=== PATIENT | female | born 1990 | race Caucasian/White ===

== ENCOUNTER 2025-06-23 10:39 | Inpatient (IN) | payer OTHER, SELFPAY ==
[2025-06-23] VITALS (14 sets, daily range): BP systolic 104–232; BP diastolic 50–87; PULSE 98–122; RESP 14–24; TEMP 36.6–38.8; O2SAT 97–99; BMI 32.5
--- NOTE | ~2025-06-23 | XR_ITS ---
EXAMINATION: XR CHEST CLINICAL INFORMATION: chest pain COMPARISON: September 29, 2019 TECHNIQUE: 2 views of the chest were obtained. FINDINGS: Median sternotomy wires are intact. Again seen is a prosthetic valve, likely pulmonary. Cardiac size is enlarged. It is similar to the prior. Lungs are clear. There is no pleural effusion. No pneumothorax is evident. XR/XR chest 2V IMPRESSION: Cardiac valve prosthesis, probably pulmonary. Cardiomegaly. No acute disease. Electronically signed by: Ariel Bowers MD 06/23/2025 11:13 AM [facility]
--- NOTE | 2025-06-23 10:42 | ECG_ITS ---
Test Reason : cp Blood Pressure : */* mmHG Vent. Rate : 97 BPM Atrial Rate : 97 BPM P-R Int : 130 ms QRS Dur : 154 ms QT Int : 408 ms P-R-T Axes : 25 -7 72 degrees QTcB Int : 518 ms Normal sinus rhythm Right bundle branch block Possible Inferior infarct , age undetermined T wave abnormality, consider lateral ischemia Abnormal ECG When compared with ECG of 18-Sep-2019 06:56, No significant change was found Referred By: Zina Cross Electronically Signed By: David Camarillo
--- NOTE | 2025-06-23 10:48 | ED_ITS ---
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 Patient had cardiac MRI in [facility] which was showed preserved LV function. She was seen at [facility] in February for similar symptoms as well, with only abnormal finding of small pericardial effusion. She was also seen by cardiology at [facility] 1 week ago. They recommended outpatient echo which patient has scheduled this month. She denies any change in her symptoms since onset in January. Currently rating her chest pain at 8/10. Does complain of chills and lower back pain today. Also noted to have nonproductive cough during assessment. Reports that she is supposed to be on a daily baby aspirin but usually forgets to take this, also has Nexplanon implant and is currently on Adderall. MD complaint: Chest pain Onset (ago): month(s) Related Data Allergies Allergy/AdvReac Type Severity Reaction Status Date / Time amoxicillin (From AUGMENTIN) Allergy Intermediate RASH Unverified 05/07/20 19:04 clavulanic acid (From Allergy Intermediate RASH Unverified 05/07/20 19:04 AUGMENTIN) influenza virus vaccine, Allergy Intermediate RASH Unverified 05/07/20 19:04 specific (FLU VACCINE) povidone-iodine (From Allergy Intermediate RASH Unverified 05/07/20 19:04 BETADINE) soap (From BETADINE) Allergy Intermediate RASH Unverified 05/07/20 19:04 iodine (IODINE) Allergy Unknown RASH Unverified 05/07/20 19:04 naproxen (NAPROXEN) Allergy Unknown RASH Unverified 05/07/20 19:04 Penicillins (PENICILLINS) Allergy Unknown UNK Unverified 05/07/20 19:04 sumatriptan Allergy Palpitation Verified 06/23/25 10:49 s FLU VACCINE Allergy Unknown Unknown Uncoded 06/23/25 10:49 Review of Systems 2 Review of Systems: As per HPI Yes all other systems are reviewed and are negative Constitutional: Constitutional: Reports as per HPI [facility] Social History Social History Smoked in Last 30 Days: No Use of substances other than those prescribed or required for medical reasons: No Advance Directives: No Advance Directives Information Provided: No Patient : No Physical Exam ED Vital Signs: Vital Signs - 24 hr 06/23/25 10:47 06/23/25 11:24 06/23/25 12:00 Temperature 97.9 F 99.1 F 100.4 F Pulse Rate 105 H 102 H 116 H Respiratory Rate 18 18 19 Blood Pressure 144/66 H 132/72 134/67 Pulse Oximetry 99 98 99 Oxygen Delivery Method Room Air Room Air Room Air BMI result Body Mass Index 32.5 Vital signs have been reviewed and appear to be correct. Blood pressure normal. Heart rate slightly tachycardic. Respiratory rate normal. Temperature normal. Oxygen saturation normal. Const General: cooperative, healthy appearing and no acute distress Orientation/consciousness: oriented to person, oriented to place, oriented to time and patient oriented x3 Limitations: no limitations HENMT Head: Yes normocephalic and Yes atraumatic Ears: external ears normal General nose exam: Normal external nose present Face and sinus: Yes face symmetric Mouth: oropharynx normal and moist mucous membranes Throat: Yes uvula midline Eyes Pupils: Equal, round and reactive pupils present Neck Neck: Yes normal visual inspection and Yes supple Chest Chest palpation & inspection: other (well-healed surgical scar over sternum) Resp Effort & Inspection: normal respiratory effort and able to speak in complete sentences Auscultation: clear to auscultation bilaterally Cardio Rate: regular rate Rhythm: regular rhythm Heart sounds: S1 normal heart sound present, S2 normal heart sound present and Murmur heart sound present Peripheral pulses: Peripheral pulses 2+ throughout GI Palpation (GI): Soft to palpation and nontender Auscultation: normoactive bowel sounds General: Yes no CVA tenderness Back/Spine/Pelvis Back: no CVA tenderness Skin General skin exam: elasticity normal and turgor normal Neuro General: oriented to person, oriented to place, oriented to time, patient oriented x3, moves all extremities, no focal motor deficits and CN's II-XI intact bilaterally Cranial nerves: Yes Equal, round and reactive pupils present Cognition (Neuro): normal cognition Extrem General: Yes full ROM, Yes no pedal edema and Yes no calf tenderness Psych Mental Status: mental status grossly normal Affect: normal affect Thought process: Normal thought process present Course Course Course Narrative: Rapid medical examination performed in triage by Zina Cross PA-C: Patient is a 34 year old assigned female at presenting to the emergency department with chest pain on and off. Patient went to [facility] to have a cardiac MRI in May. Tetralogy of Fallot history. Patient states that she has also been having shortness of breath. Detailed physical exam and review of systems are deferred to the primary care nurse. EKG, labs, and imaging ordered. Patient placed back in the waiting room pending room availability and results. Medications Administered Generic Name Dose Route Start Last Admin Trade Name Freq PRN Reason Stop Dose Admin Ceftriaxone Sodium 2 gm/ 50 mls @ 100 mls/hr 06/23/25 13:59 06/23/25 14:10 Sodium Chloride IV 06/23/25 14:28 100 mls/hr ONCE ONE Administration Discontinued Medications Generic Name Dose Route Start Last Admin Trade Name Freq PRN Reason Stop Dose Admin Acetaminophen 1,000 mg in 100 mls @ 400 mls/hr 06/23/25 12:29 06/23/25 12:55 Ofirmev IV 06/23/25 12:43 Infused ONCE ONE Infusion Medical Decision Making Medical Decision Making [facility] Narrative: Patient is a 34-year-old female with 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 On exam patient is awake, A+Ox3, slightly tachycardic, VS otherwise WNL, afebrile, normal neurological exam without focal deficits, physical exam findings as above. Given reported symptoms and physical exam findings, initial differential includes but is not limited to PE, arrhythmia, viral illness, musculoskeletal pain. Labs unremarkable, negative troponin and d-dimer. X-ray chest notable for no evidence of pneumonia or pneumothorax, notable for cardiomegaly and prosthetic valve. My interpretation is in agreement with the radiologist's interpretation. Viral serology negative. Initial EKG shows normal sinus rhythm with right bundle-branch block present on prior EKGs, U wave inversion in leads V1 through V3. Most recent cardiology note from 06/17/2025 notes EKG changes of horizontal ST depression and T-wave inversions in leads 3 and AVF which tier and detonator felt was likely related to pulmonary valve dysfunction. 1345 Notified by RN at this time that patient has temp of 100.4, with her tachycardia she is meeting sepsis criteria. Patient denies any history of IVDA. Blood cultures and lactic ordered as well as empiric ceftriaxone. Case discussed with JOSH Charles who accepts admission to medicine. Differential Diagnosis Differential Diagnoses: The differential diagnosis associated with the presentation includes as per [facility] Admission/Observation Consideration of admission/observation: Escalation of care including admission/observation considered Consult Healthcare Provider Management of the patient was discussed with: Hospitalist Lab Data [facility] Lab Attestation statement: I reviewed the patient's lab results. as per [facility] 06/23/25 11:33 06/23/25 11:33 Labs: Lab Results 06/23/25 06/23/25 06/23/25 Range/Units 11:33 12:36 13:57 WBC 7.0 (4.8-10.8) X10*3/uL RBC 5.18 (4.20-5.50) X10*6/uL Hgb 13.5 (12.0-16.0) g/dl Hct 42.6 (37.0-47.0) % MCV 82.2 (80.0-98.0) fL MCH 26.1 L (27.0-33.0) pg MCHC 31.7 (31.0-35.0) g/dl RDW 13.8 (11.0-16.0) % Plt Count 322 (160-400) X10*3/uL MPV 10.0 (9.4-12.3) fL Immature Gran % (Auto) 0.3 (0.0-0.4) % Neut % (Auto) 86.4 H (45-73) % Lymph % (Auto) 4.7 L (20-40) % [place] % (Auto) 6.3 (2-11) % Eos % (Auto) 1.7 (0-4) % Baso % (Auto) 0.6 (0-2) % Lymph # (Auto) 0.3 L (1.2-4.9) X10*3/uL [place] # (Auto) 0.4 (0.1-1.2) X10*3/uL Eos # (Auto) 0.1 (0.0-0.4) X10*3/uL Baso # (Auto) 0.0 (0.0-0.2) X10*3/uL Abs Immat Gran (auto) 0.02 (0.00-0.03) X10*3/uL Absolute Neuts (auto) 6.0 (2.0-8.3) x10*3/uL Absolute Nucleated RBC 0.000 (0.0-0.012) X10*3/uL Nucleated RBC % (auto) 0.0 (0.0-0.2) /100WBC D-Dimer High Sensitivty < 150 NG/ML Sodium 137 (135-145) mmol/L Potassium 4.0 (3.3-5.1) mmol/L Chloride 102 (96-108) mmol/L Carbon Dioxide 25 (22-29) mmol/L Anion Gap 14 (12-20) BUN 11 (9-16) mg/dL Creatinine 0.67 (0.5-1.4) mg/dL Estim Creat Clear Calc 117.4 Estimated GFR > 60 Random Glucose 84 (60-115) mg/dL Calcium 9.7 (8.4-10.2) mg/dL Total Bilirubin 0.6 (0.0-1.0) mg/dL AST 35 H (5-31) U/L ALT 30 (0-31) U/L Alkaline Phosphatase 85 (39-117) U/L Troponin I High Sens < 2.7 (<3.5-17.0) ng/L C-Reactive Protein 0.54 H (< or = 0.50) mg/dL NT-Pro-B Natriuret Pep 87.4 (<300) pg/mL Total Protein 8.9 H (6.5-8.0) g/dL Albumin 5.4 H (3.5-5.0) g/dL Beta HCG, Quant < 2 mIU/mL Urine Color Yellow Urine Appearance Clear Urine pH 7.0 (5.0-9.0) Ur Specific [place] 1.020 (1.005-1.025) Urine Protein Negative (Neg-Trace) mg/dL Urine Glucose (UA) Negative (Negative) mg/dL Urine Ketones Trace (Negative) mg/dL Urine Blood Large (3+) H (Negative) Urine Nitrite Negative (Negative) Ur Leukocyte Esterase Trace H (Negative) Urine RBC 0-2 (0-2) /HPF Urine WBC 0-5 (0-5) /HPF Ur Squamous Epith Cells 3-5 (0-2) /HPF Urine Bacteria Trace (None Seen) Hyaline Casts 0-2 (0-2) /LPF COVID-19 (ADOLPH) Negative (Negative) COVID-19 Clin Com See Note Influenza Type A (PAULINE) Negative (Negative) Influenza Type B (PAULINE) Negative (Negative) Influenza A & B Note See Note Independent Interpretation I performed an independent interpretation of an: EKG (NSR with RBBB, rate 97bpm, normal CT interval and prolonged QTc) and Plain X-Ray Interpretation: CXR is without evidence of pneumonia, pneumothorax; notable for cardiomegaly, and valve prosthesis Radiology Impression Discussion of test interpretation with radiology: I have reviewed the radiologist's reading. Radiologist Impression: XR/XR chest 2V IMPRESSION: Cardiac valve prosthesis, probably pulmonary. Cardiomegaly. No acute disease. External Record Review External record reviewed: Inpatient record and Outpatient record Prescription Management I considered prescription management with: Antibiotic Critical Care Time Critical Care Time Critical Care Time: Yes Total Critical Care Time: 45 Attestation: I have personally provided critical care time exclusive of time spent on separately billable procedures. Time includes review of lab data, radiology results, discussion with consultants, and monitoring for potential decompensation. Intervention performed as documented. Discharge Plan Discharge Clinical Impression: Chest pain, Fever Patient Disposition: Admitted As Inpatient Print Language: Yi
[2025-06-23 11:43] LABS: MANUAL DIFF FLAG NO
[2025-06-23 11:49] LABS: Hematocrit 42.6 % (37.0-47.0); Hemoglobin 13.5 g/dl (12.0-16.0); Imm Gran Abs Auto 0.02 X10*3/uL (0.00-0.03); Imm Gran Pct Auto 0.3 % (0.0-0.4); Lymphocytes Absolute Auto 0.3 X10*3/uL (1.2-4.9); Mean Corpuscular HGB Conc 31.7 g/dl (31.0-35.0); Mean Corpuscular Hemoglobin 26.1 pg (27.0-33.0); Mean Corpuscular Volume 82.2 fL (80.0-98.0); NRBC Abs Auto 0.000 X10*3/uL (0.0-0.012); NRBC Pct Auto 0.0 /100WBC (0.0-0.2); Platelet Count 322 X10*3/uL (160-400); Red Blood Count 5.18 X10*6/uL (4.20-5.50); White Blood Count 7.0 X10*3/uL (4.8-10.8)
[2025-06-23 12:09] LABS: NT Pro B Type Natriuretic Pept 87.4 pg/mL (<300)
[2025-06-23 12:10] LABS: Alanine Aminotransferase 30 U/L (0-31); Albumin Level 5.4 g/dL (3.5-5.0); Alkaline Phosphatase 85 U/L (39-117); Anion Gap 14 (12-20); Aspartate Amino Transferase 35 U/L (5-31); Blood Urea Nitrogen 11 mg/dL (9-16); Calcium 9.7 mg/dL (8.4-10.2); Carbon Dioxide 25 mmol/L (22-29); Chloride 102 mmol/L (96-108); Creatinine Clr Calc Pharmacy 117.4; Estimated Glomerular Filt Rate > 60; Potassium 4.0 mmol/L (3.3-5.1); Sodium 137 mmol/L (135-145); Total Protein 8.9 g/dL (6.5-8.0)
[2025-06-23 12:11] LABS: Troponin-I High Sensitivity < 2.7 ng/L (<3.5-17.0)
[2025-06-23 13:05] LABS: D Dimer High Sensitivity < 150 NG/ML
[2025-06-23 13:15] LABS: COVID-19 Test Negative (Negative); IDNOW Serial# 55D5AD1C
[2025-06-23 13:17] LABS: IDNOW Serial# 58CA691E; Influenza B2 Negative (Negative)
--- NOTE | 2025-06-23 13:28 | ECG_ITS ---
Test Reason : repeat Blood Pressure : */* mmHG Vent. Rate : 112 BPM Atrial Rate : 112 BPM P-R Int : 136 ms QRS Dur : 154 ms QT Int : 380 ms P-R-T Axes : 44 -14 68 degrees QTcB Int : 518 ms Sinus tachycardia Possible Left atrial enlargement Right bundle branch block Inferior infarct (cited on or before 23-Jun-2025) Abnormal ECG When compared with ECG of 23-Jun-2025 10:43, No significant change was found Referred By: Rebeca Parker Electronically Signed By: David Camarillo
--- NOTE | 2025-06-23 14:00 | PC.NURSE ---
Discussed w/ provider JOSH Nino regarding administration of sepsis 30ml/kg ivf administration, it was decided will hold off secondary to pts pmhx of heart valve replacement and unsure of current EF.
[2025-06-23 14:08] LABS: Appearance Urine Clear; Glucose Urine UA Negative (Negative); PH 7.0 (5.0-9.0); Specific Gravity - Urine 1.020 (1.005-1.025); UMIC TRIGGER UACC YES
[2025-06-23 14:34] LABS: Troponin-I High Sensitivity < 2.7 ng/L (<3.5-17.0)
--- NOTE | 2025-06-23 15:04 | PHA.MEDREC ---
Addendum entered by Arnulfo Quiroga PharmD 06/23/25 15:08: reviewed Original Note: Pharmacy Consult ? Medication Reconciliation Pharmacy has completed the medication reconciliation. Spoke with pt and she confirmed her medications. Pt confirmed she no longer taking Albuterol inhaler or Fluticasone nasal spray; stating she picked them up but has not needed to take them and she uses Trazodone as needed for sleep now.
--- OUTSIDE RECORDS SUMMARY | 2025-06-23 15:04 | XMS_ITS ---
Author Name [facility] Organization Unknown History of Medication Use Medication Directions Dispensed Refills Start Date End Date Stat us fexofenadine-pseudoe phedrine (CARMEN-D) 60-120 mg per tablet Take 1 tablet by mouth 2 (two) times daily. 09/20/2024 active predniSONE (DELTASONE) 50 mg tablet Take 1 tablet (50 mg total) by mouth daily for 3 days. Take with food. 09/16/2024 active dextroamphetamine-am phetamine XR (ADDERALL XR) 20 mg 24 hr capsule Take 1 capsule (20 mg total) by mouth. 07/12/2024 active aspirin 81 mg EC delayed release tablet Take 1 tablet (81 mg total) by mouth daily. active Allergies Allergen Reaction Severity Comment Documented Date Source Statu s LIDOCAINE 09/16/2024 [facility] active SUMATRIPTAN PALPITATIONS 08/22/2024 [facility] ac tive IODINATED CONTRAST MEDIA RASH [facility] IODINE [facility] NAPROXEN R[facility] PENICILLINS RASH [facility] Problems Problem Status Onset Date Problem Type Date of Resoluti on Source Acute cough active EncounterDiagnosisAct [facility] Sore throat active EncounterDiagnosisAct [facility] Encounters Encounter Type Encounter Reason Primary Diagnosis Location Date Ambulatory Cough Cough [facility] 09/20/2024 Ambulatory Acute pharyngitis Acute pharyngitis [facility] 09/16/2024 Care Team Organization Name Specialty Phone Email Start Date End [facility] HARIKA WORLEY Primary Care 0 09/17/[address] [place] [facility]
--- OUTSIDE RECORDS SUMMARY | 2025-06-23 15:04 | XMS_ITS | Clinical Summary ---
Author Organization [address] [place] [address] Address [address] [place] [address] Phone Care Team Providers Care Parts Counter Salesperson Name Role Phone Ninfa Swenson MD Primary Care Provider [phone]- [phone] Allergies Active Allergy Reactions Criticality Noted Date Comments Amoxicillin-Pot Clavulanate Rash Medium 08/22/19 Povidone-Iodine Skin Problems Medium 08/22/2024 Influenza Virus Vaccines Rash Medium 08/22/2024 Iodinated Contrast Media Rash Medium 08/22/2024 Iodine Rash Medium 08/22/2024 Naproxen Rash Medium 08/22/2024 Penicillins Rash Medium 08/22/2024 Sumatriptan Palpitations Low 08/22/2024 Medications amphetamine-dex troamphetamine XR (ADDERALL XR) 20 mg 24 hr capsule Take 1 capsule (20 mg total) by mouth 1 (one) time each day in the morning. Do not crush or chew. Max Daily Amount: 20 mg Active levoFLOXacin (LEVAQUIN) 250 mg tablet Take by mouth. Active aspirin 81 mg EC tablet Take 1 tablet (81 mg total) by mouth 1 (one) time each day. Active oxyCODONE (ROXICODONE) 5 mg immediate release tablet Take 1 tablet (5 mg total) by mouth every 4 (four) hours if needed for severe pain or moderate pain. Max Daily Amount: 30 mg 35 tablet 08/23/2024 Active Active Problems Problem Noted Date Diagnosed Date Superficial foreign body of foot without major open wound and without infection 08/22/2024 Pneumonia due to other specified infectious orga nisms 10/25/2005 Overview (08/27/2024): Pneumonia due to other specified organism(483.8) Croup 10/25/2005 Expressive language disorder 10/25/2005 Varicella 10/25/2005 Overview (08/27/2024): without mention of complication - IMO update Immunizations Immunization Administration Dates Next Due DTP 09/28/1995, 3,04/08/1992,1991,1991 [id number] (Pentacel) 2mo to less than 5yo 04/08/1992,02/06/1992,1991 Hepatitis B Pediatric (Enger ix B; Recombivax HB) to less than 20 yo 04/18/1995,10/27/1994,09/27/1994 OPV 09/28/1995, 3,02/06/1992,1991 Td, Unspecified 11/14/2003 Surgical History Surgery Date Site/Laterality Comments KNEE ARTHROSCOPY Left CARDIAC VALVE SURGERY Medical History Medical History Date Comments Expressive language disorder DX: Expressive language disorder Croup DX:Croup Varicella without mention of complication DX:Varicella without mention of complication Pneumonia due to other speci fied organism(483.8) DX:Pneumonia due to other sp ecified organism(483.8) Tetralogy of Fallot Adhd PTSD (post-traumatic stress disorder) Family History Relation Name Status Comments Brother Alive 08/18/1988, mar k Father Alive 03/11/1961 Mother Alive 02/05/57 Social History Tobacco Use Types Packs/Day Years Used Date Smoking Tobacco: Never Tobacco Cessation:Counseling Given: Not Answered Alcohol Use Standard Drinks/Week Comments Not Asked 0 (1 standard drink = 0.6 oz pur e alcohol) Comments No Sex and Gender Information Value Date Recorded Sex Assigned at Female 08/23/2024 11:25 AM EST Legal Sex Female 9:07 PM EST Gender Identity Female 08/23/2024 11:25 AM EST Sexual Orientation Straight 08/23/2024 11 :25 AM EST Obstetrics History Last Filed Vital Signs Vital Sign Reading Time Taken Comments Blood Pressure 93/57 08/23/2024 2:08 PM EST Pulse 78 08/23/2024 2:08 PM EST Temperature 36.7 C (98 F) 08/23/2024 11:42 AM EST Respiratory Rate 16 08/23/2024 2:08 PM EST Oxygen Saturation 100% 08/23/2024 2:08 PM EST Inhaled Oxygen Concentration - - Weight 74.8 kg (165 lb) 09/10/2024 7:57 AM EST Height 157.5 cm (5' 2.01 ) 09/10/2024 7:57 AM ES T Body Mass Index 30.17 09/10/2024 7:57 AM EST Plan of Treatment Health Maintenance Due Date Last Done Comments Cervical Cancer Screening: Pap Smear 2012 HPV Vaccines (1 - 3-dose SCDM series) 2018 HIV Screening 09/15/2023 Hepatitis C Screening 09/15/2023 Social Influencers of Health Screening 09/15/2023 Depression Screening 08/21/2024 COVID-19 Vaccine ( season) 2025 12/04/2021, 08/11/2021 Influenza Vaccine (#1) 2025 DTaP,Tdap,and Td Vaccines (10 - Td or Tdap) 08/20/2034 08/20/2024, 12/25/2014, 09/11/2009, Additional history exists RSV Immunization Adult Patients (1 - 1-dose 75+ series) 2066 HIB Vaccines Aged Out 04/08/1992, 01/19, 1991 No longer eligible based on patient's age to complete this topic IPV Vaccines Completed 09/28/1995, 03/21, 04/08/1992, Additional history exists MMR Vaccines Completed 09/30/1996, 01/06/1993 Varicella Vaccines Aged Out 10/25/2005 No longer eligible based on patient's age to complete this topic Meningococcal ACWY Vaccine Aged Out 09/16/2011, No longer eligible based on patient's age to complete this topic Hepatitis B Vaccines Completed 01/06/2023, 04/18/1995, 10/27/1994, Additional history exists Hepatitis A Vaccines Aged Out No long er eligible based on patient's age to complete this topic Meningococcal B Vaccine Aged Out No l onger eligible based on patient's age to complete this topic Pneumococcal Vaccine: Pediatrics (0 to 5 Years) and At-Risk Patients (6 to 49 Years) Aged Out No longer eligible based on patient's age to complete this topic RSV Immunization Patients Under 20 months Aged Out No longer eligible based on patient's age to complete this topic Insurance [facility] MEDICAID ADVANTAGE Care Teams Parts Counter Salesperson Relationship Specialty Start Date End Date Ninfa Swenson MD [address] [place] [address] PCP - General Internal Medicine 08/23/24
--- OUTSIDE RECORDS SUMMARY | 2025-06-23 15:04 | XMS_ITS | Clinical Summary ---
Author Organization [facility] [address] Address [address] [place] [id number] Care Team Providers Care Instructional Services Specialist Name Role Phone Ninfa Swenson MD Primary Care Provider +1- [phone] Allergies Active Allergy Reactions Criticality Noted Date Comments Iodinated Contrast Media Rash Medium 08/22/2024 Iodine Unknown,Rash Medium 08/22/2024 Lidocaine Unknown 09/16/2024 Naproxen Rash Medium 08/22/2024 Penicillins Rash Medium 08/22/2024 Sumatriptan Palpitations Low 08/22/2024 Medications dextroamphetami ne-amphetamine XR (ADDERALL XR) 20 mg 24 hr capsule Take 1 capsule (20 mg total) by mouth. 07/12/2024 Active aspirin 81 mg EC delayed release tablet Take 1 tablet (81 mg total) by mouth daily. Active fexofenadine-ps eudoephedrine (CARMEN-D) 60-120 mg per tabletIndicatio ns:Sore throat Take 1 tablet by mouth 2 (two) times daily. 60 tablet 09/20/2024 Active Active Problems No known active problems Family History Relation Name Status Comments Father Alive Mother Alive Social History Tobacco Use Types Packs/Day Years Used Date Smoking Tobacco: Never Tobacco Cessation:Counseling Given: Not Answered Alcohol Use Standard Drinks/Week Comments Yes 0 (1 standard drink = 0.6 oz pur e alcohol) Comments Unknown Sex and Gender Information Value Date Recorded Sex Assigned at Not on file Legal Sex Female 5:06 PM EST Gender Identity Not on file Sexual Orientation Not on file Last Filed Vital Signs Vital Sign Reading Time Taken Comments Blood Pressure 124/83 09/20/2024 11:55 AM EST Pulse 77 09/20/2024 11:55 AM EST Temperature 36.8 C (98.3 F) 09/20/2024 11:55 AM EST Respiratory Rate 16 09/20/2024 11:5 5 AM EST Oxygen Saturation 100% 09/20/2024 11: 55 AM EST Inhaled Oxygen Concentration - - Weight 74.8 kg (164 lb 14.5 oz) 025 11:55 AM EST Height 167 cm (5' 5.75 ) 09/20/2024 11: 55 AM EST Body Mass Index 26.82 09/20/2024 11:55 AM EST Plan of Treatment Health Maintenance Due Date Last Done Comments HIV screening 2004 Hepatitis C screening 2009 Cervical cancer screening 2012 Tetanus adult (Td q 10,TDAP once) 12/25/2024 12/25/2014, 09/11/2009, 11/14/2003 Influenza vaccine 03/21/2025 Covid-19 vaccine series ( season) 2025 12/04/2021, 08/11/2021 RSV Immunization (1 - 1-dose 75+ series) 2066 Meningococcal Vaccine Aged Out 09/16/2011 , 03/01/2007 No longer eligible based on patient's age to complete this topic Meningococcal B Vaccine Aged Out No l onger eligible based on patient's age to complete this topic Pneumococcal Vaccine (2 - 49 years) Aged Out No longer eligible b ased on patient's age to complete this topic Insurance [employer] Care Teams Instructional Services Specialist Relationship Specialty Start Date End Date Ninfa Swenson MD [address] [address] PCP - General Internal Medicine 09/16/24
--- OUTSIDE RECORDS SUMMARY | 2025-06-23 15:04 | XMS_ITS | Clinical Summary ---
Author Organization [facility] Address [address] [place] [address] Care Team Providers Care Wood Miller Name Role Phone Unavailable Primary Care Provider Unavailabl e Social History Tobacco Use Types Packs/Day Years Used Date Smoking Tobacco: Never Assessed Comments Unknown Sex and Gender Information Value Date Recorded Sex Assigned at Not on file Legal Sex Female 6:56 PM EST Gender Identity Not on file Sexual Orientation Not on file Plan of Treatment Health Maintenance Due Date Last Done Comments Hepatitis C Virus Screening 1991 HIV Screening 2004 DTaP/Tdap/Td Vaccines (1 - Tdap) 2010 Hepatitis B Vaccines (1 of 3 - 19+ 3-dose series) 2010 COVID-19 Vaccine (2023-2 5 season) 2025 HPV Vaccines (No Doses Required) Completed Pneumococcal Vaccine: Pediat oksana (0-5 Years) and At-Risk Patients (6 to 49 Years) Aged Out No longer eligible b ased on patient's age to complete this topic
--- OUTSIDE RECORDS SUMMARY | 2025-06-23 15:04 | XMS_ITS | Data Portability ---
Author Organization [place] - [facility] Address [address] [place] [id number] Care Team Providers Care Business Services Sales Representative Name Role Phone HARIKA WORLEY Primary Care Provider [phone] Assessment Encounter Date Assessment Date Assessment LastModified by Organization Details LastModified Time 06/03/2021 06/03/2021 Brief History: [age] y/o F PMH ToF s/p three surgical repairs who presents with scratchy sore throat x4 days. Pt is new to , new to this issue and new to this provider. +Daughter sick contact with sore throat as well. Summary of Exam: Vitals stable and afebrile. Ears and pharynx unremarkable. LS CTAB. +Murmur but RRR. Pt nontoxic in no acute distress. Stable gait. Work up/Results: Rapid strep and rapid COVID19 negative with QC verification. PCR COVID19 sent. DDx considered & Medical Decision Making: Pt requesting evaluation for 4 days of sore throat. Suspected viral illness; COVID19 on differential as pt is unvaccinated. Strep negative. No indication for abx at this time. Counseled regarding acute viral pharyngitis supportive management with OTC pharmacological and nonpharmacological methods of symptom mgmt. Encouraged hydration. CDC guidelines for COVID19 provided. Follow up with PCP. No prior records available at the time of this visit. Proper Personal Protective Equipment (PPE), including gloves, gown, surgical mask over N95, goggles were donned and doffed appropriately and all equipment cleaned using approved technique with germicidal disposable wipes prior to and after care of this patient according to [facility]'s infection prevention protocols. Time On Scene with Patient: 00:29:07 [email or web address] Not available 06/03/2021 13:51:48 06/11/2021 06/11/2021 Proper Personal Protective Equipment (PPE), including gloves, gown, shoe covers, eye protection and masks were donned and doffed appropriately and all equipment cleaned using approved technique with germicidal disposable wipes prior to and after care of this patient according to [facility]'s infection prevention protocols. 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 Seen today for same sore throat chief complaint as last visit on 06/03/21: POC rapid COVID-19, Strep both resulted negative; COVID PCR returned on 06/07/21 resulting negative. She states now it is worse; pain with swallowing. She endorses maintaining hydration with good PO fluid intake. She endorses fever, chills, denies [place], denies headache, changes in vision, runny nose, congestion, cough, chest pain, palpitations, abdominal pain, nausea, vomiting or diarrhea Exam: ENT: Bilateral impacted cerumen, s/p removal, peripheral to TMs erythema present, TM non-opaque, appear cloudy, left > right, distal canals w/erythema around TMs; mid & proximal canals clear after removal of impacted cerumen, no nasal discharge, erythema w/o exudate, Grade II tonsillitis noted in oropharynx, moist mucous membranes, tender left submadibular lymphadenopathy CV: Normal HR, no rubs/ Clicking murmur present/ gallops heard, 2+ radial pulses bilaterally, no edema, Pulm: breath sounds clear and equal bilaterally, no wheeze/ rhonchi or rales on auscultation. Speaks in full sentences, no increased work of breathing. DDx considered, but not limited to: Acute otitis media bilateral ears; left > right; seasonal allergies, mild grade II tonsillitis w/o exudate or anterior lymphadenophathy Work up/Results: Bilateral impacted cerumen removal performed Plan/Discussion: Acute bilateral otitis media. azithromycin 250 mg (Z-pack) prescribed d/t penicillin allergy. Flonase 50 mcg prescribed for seasonal allergies. Patient instructed to f/u with her PCP in 5 -7 days for ear check. Instructions given regarding ear wax build-up prevention with intermittent warm water flushes w/ 50:50 warm water and hydrogen peroxide. Discussed use of OTC NSAID pain relievers for fever and throat pain. Be sure to check the dose strength of the medication you take for pain relief (MAX DOSE OF TYLENOL IS 4OOO mg IN 24 HOURS/ ADVIL Adults and teenagers 1 200 milligrams (mg) up to 3200 mg per day divided into three or four equal doses. Report to the ER for acute symptoms of chest pain, worsened shortness of breath, severe weakness, fevers of 101.5 or greater, mental status changes, severe unrelieved headaches, inability to eat, drink, or walk. Pt verbalized understanding of all instructions provided In order to obtain further information and compare any laboratory results/values, I have accessed patient records on the [employer]. This information was pertinent in my medical decision making today. [email or web address] Not available 06/11/2021 14:48:47 Plan of Treatment Reminders Order Date Submit Date Provider Last Modified By Organization Details Last Modified Time Details Appointments None recorded. Lab rapid SARS CoV + SARS CoV 2 Ag, QL IA, respiratory specimen [address] [facility] [place], [address] [place] [address], [id number], 13:36:39 unlisted lab - sars-cov-2 virus PCR (covid-19) 2020 [facility], [address] [place] [address], [address], 13:41:24 rapid strep group A, throat [address] - [place], [address] [place], [address], 13:39:30 Referral None recorded. Procedures None recorded. Surgeries None recorded. Imaging None recorded. Medication Orders azithromyci n 250 mg tablet 2020 [id number], [address] [place], [address], 14:37:46 fluticasone propionate 50 mcg/actuati on nasal spray,suspe nsion 2020 [address] [employer] [id number], [address] [facility], [place], [address], 14:36:58 Patient TargetsNo targets recorded. Patient Instructions Encounter Date Encounter Id Patient Instructions Last Modified By Organization Details Last Modified Time 06/03/2021 [id number] Acetaminophen- 325-650mg every 6 hours or 500-1000mg every 8 hours as needed for pain/fever. Do not take more than 3000mg in 24 hours. Ibuprofen- 400 every 6-8 hours as needed for pain/fever. Do not take more than 2400 in 24 hours. Drink a full glass of water with each dose. OR Naproxen- 220mg-For the first dose, take 1-2 pills within the first hour. Do not take more than 2 doses in 12 hours, and do not take more than 3 doses in 24 hours. The smallest effective dose should be used. Drink a full glass of water with each dose. You can take Ibuprofen and alternate with Acetaminophen. You cannot take Ibuprofen and Naproxen together. These are both non-steroidal anti-inflammatories (NSAIDs) You were tested for COVID19. We will call only if the test results are positive. No news is good news per company procedure. We are not calling on negative results. Record Request of the results: [email or web address] or enroll in the Patient Portal Your [facility] provider will advise quarantine recommendations based on your exposure risk and with or without any symptoms. If you were not advised to quarantine, please continue mask wearing, hand sanitizing, hand washing when soiled, and practice social distancing at least 6 feet apart as recommended by your local government, Centers for Disease Control, and other public health agencies. If you were asymptomatic and develop ANY symptoms, stay home and isolate yourself. Please continue to monitor the CDC website as the recommendations for length of quarantine change as additional information is released on this virus. Symptoms of Coronavirus What you need to know ANYONE can have mild to severe symptoms. Older adults and people who have severe underlying medical conditions like obesity, heart or lung disease or diabetes seem to be at higher risk for developing more serious complications from COVID-19 illness. Watch for symptoms! People with COVID-19 have had a wide range of symptoms reported ranging from mild symptoms to severe illness. Symptoms may appear 2-14 days after exposure to the virus. On average, people begin to develop symptoms after day 5, but you can develop symptoms on day 14 after exposure! People with these symptoms may have COVID-19: Fever or chills Cough Shortness of breath or difficulty breathing Fatigue Muscle or body aches Headache New loss of taste or smell Sore throat Congestion or runny nose Nausea or vomiting Diarrhea This list does not include all possible symptoms. The CDC will continue to update this list as we learn more about COVID-19. When to Seek Emergency Medical Attention Look for emergency warning signs for COVID-19. If someone is showing any of these signs, seek emergency medical care immediately Trouble breathing Persistent pain or pressure in the chest New confusion Inability to wake or stay awake Worst headache or slurred speech Bluish lips or face This list does not include all possible symptoms. Please call your medical provider for any other symptoms that are severe or concerning to you. COVID19 has an increased risk of causing blood clots. If you have a history of blood clots or you take hormonal therapy/contracepti on, you may be at risk. Monitor for any leg pain or swelling, redness, sudden chest pain or shortness of breath. If you have these symptoms, go to the ER. Call 911 or call ahead to your local emergency facility: Notify the cooling system operator that you are seeking care for someone who has or may have COVID-19. What is coronavirus disease 2019? Coronavirus disease 2019 (COVID-19) is a respiratory illness that can spread from person to person. The virus that causes COVID-19 is a novel coronavirus that was first identified during an investigation into an outbreak in [facility]. Can I get COVID-19? Yes. COVID-19 is spreading from person to person in parts of the world. Risk of infection from the virus that causes COVID-19 is higher for people who are close contacts of someone known to have COVID-19, for example household members. Other people at higher risk for infection are those who live in or have recently been in an area with ongoing spread of COVID-19. How does COVID-19 spread? The virus that causes COVID-19 probably emerged from an animal source, but is now spreading from person to person. The virus is thought to spread mainly between people who are in close contact with one another (within about 6 feet) through respiratory droplets produced when an infected person coughs or sneezes. It also may be possible that a person can get COVID-19 by touching a surface or object that has the virus on it and then touching their own mouth, nose or possibly their eyes, but this is not thought to be the main way the virus spreads. What are severe complications from this virus? Some patients have pneumonia in both lungs, multi-organ failure, strokes, blood clots, and in some cases . People can help protect themselves from respiratory illness with everyday preventative actions. Avoid close contact with people who are sick. Avoid touching your eyes, nose, and mouth with unwashed hands. Wash your hands often with soap and water for at least 20 seconds. Use an alcohol-based hand investment analyst that contains at least 60% alcohol if soap and water are not available If you are sick, to keep from spreading respiratory illness to others, you should Stay home when you are sick. Cover your cough or sneeze with a tissue, throw the tissue in the trash, then hand sanitize or wash your hands. Clean and disinfect frequently touched objects and surfaces. Is there a vaccine? Yes! CDC s recommendations are based on those of the Advisory Committee on Immunization Practices (ACIP), an independent panel of medical and public health experts. https://www.cdc.gov /coronavirus/2019-n cov/vaccines/faq.ht ml https://www.cdc.gov /coronavirus/2019-n cov/vaccines/leothi ngstoknow.html Is there a treatment? https://www.cdc.gov /coronavirus/2019-n cov/your-health/laura goqwfoi-hgw-monclp- illness.html FOR MORE INFORMATION:https:/ /www.cdc.gov/henson virus/2019-nCoV/ind ex.html [facility] COVID19 WHEN TO QUARANTINE https://www.cdc.gov /coronavirus/2019-n cov/hp-fhn-ccq-sick /quarantine.html [email or web address] 5 Not available 06/03/2021 13:39:43 06/11/2021 [id number] Please seek care immediately if you develop any of the following symptoms: 1. Uncontrolled fever of at least 101 F or 38.4 C 2. Throat pain that is severe or does not start to improve within 5 to 7 days Call 911 or go to the emergency department if you: 1. Have trouble breathing 2. Cannot control your saliva (drooling) due to difficulty swallowing 3. Have swelling of the neck or tongue 4. Cannot move your neck or have trouble opening your mouth If you have additional concerns or develop a change in your condition between 8am-10pm, please call [facility] at [phone] to help navigate your care. Not available 06/11/2021 14:07:46 Reason for Referral None Reported. Results Created Date Observation Date Name Description Value Unit Range Abnormal Flag Note LastModifiedBy Organization Detail LastModifiedTime 06/03/20 21 06/03/2021 rapid SARS CoV + SARS CoV 2 Ag, QL IA, respi rator y speci men Covid-19 (ref: neg) negati ve Not Available [facility] - [facility] [address] [place], [address], 06/03/2021 13:23:17 06/03/20 21 06/03/2021 rapid SARS CoV + SARS CoV 2 Ag, QL IA, respi rator y speci men Control Visual ized/V alid Not Available [facility] [address] [place], [address], 06/03/2021 13:23:17 06/03/20 21 06/03/2021 rapid SARS CoV + SARS CoV 2 Ag, QL IA, respi rator y speci men Location [facility], [facility] , [address] [place] [address], [id number] Not Available [facility] [address] [place], [address], 06/03/2021 13:23:17 06/03/20 21 06/03/2021 rapid strep group A, throa t Strep A (ref: neg) negati ve Not Available [facility] [address] [place], [address], 06/03/2021 13:23:11 06/03/20 21 06/03/2021 rapid strep group A, throa t Control Visual ized/V alid Not Available [facility] - [facility] [address] [place], [address], 06/03/2021 13:23:11 06/03/20 21 06/03/2021 rapid strep group A, throa t [facility], [address] [place] [address], [id number] Not Available [facility] - Home [address] [place], [address], 06/03/2021 13:23:11 Result Notes None recorded. Procedures Surgical History Date Name Laterality Status Provider Name and Address Organization Details Recorded Time Cerumen Removal - DH completed CASTRO REICH NP [address] [place], [address], [place] [facility] 06/11/2021 14:31:49 open heart surgery completed MCKENNA EUGENE NP [address] [place], [address], [place] [facility] 06/03/2021 13:19:01 Knee arthroscopy/s urgery completed MCKENNA EUGENE NP [address] [place], [address], [place] [facility] 06/03/2021 13:19:26 operation on colon completed MCKENNA EUGENE NP [address] [place], [address], [place] [facility] 06/03/2021 13:20:20 Imaging Results None recorded. Procedure Notes None recorded. Medical Equipment None Reported. Allergies Allergen ID Allergen Name Allergen Category Reaction Reaction Severity Criticality Documentation Date Start Date Code Code System Note Provider Name and Address Organization Details Recorded Time 545482 Product containin g penicilli n (product) medicatio n Not available Not available Not available 06/03/2021 77253 8001 SNOMED MCKENNA EUGENE NP [address] [place], [address], [place] [facility] 13:15:51 450726 lidocaine medicatio n Not available Not available Not available 06/03/2021 6387 RxNorm MCKENNAGISELLE EUGENE , [employer] [address], [place], [place], [address], [place] [facility] 13:15:56 340519 Betadine medicatio n Not available Not available Not available 06/03/2021 03799 0 RxNorm MCKENNA EUGENE , [employer] [address], [place], [place], [address], [place] [facility] 13:16:04 435139 iodine medicatio n Not available Not available Not available 06/03/2021 5933 RxNorm MCKENNAGISELLE EUGENE , [employer] [address], [place], [place], [address], [place] [facility] 13:16:08 Medications Name Sig Start Date Stop Date Status Note LastModified by Organization Details LastModified Time azithromyci n 250 mg tablet TAKE 2 TABLETS ON FIRST DAY , THEN 1 TABLET DAILY FOR 4 DAYS active Not Available Not Available No t Available Sudogest 30 mg tablet TAKE ONE TABLET BY MOUTH EVERY 6 HOURS NEEDED FOR CONGESTIO N 06/03 completed Not Available Not Available Not Available cephalexin 500 mg capsule TAKE ONE CAPSULE BY MOUTH FOUR TIMES A DAY 06/03 completed Not Available Not Available Not Available fluticasone propionate 50 mcg/actuati on nasal spray,suspe nsion USE 1 SPRAY IN BOTH NOSTRILS ONCE A DAY active Not Available Not Available No t Available Nasal Decongestan t (oxymetazol ine) 0.05 % spray USE 2 SPRAYS IN BOTH NOSTRILS TWICE A DAY. NOT TO EXCEED 2 DOSES PER DAY. DO NOT USE FOR MORE THAN 1 WEEK. 06/03 completed Not Available Not Available Not Available Nexplanon active Not Available Not Karen ilable Not Available Vitals Date Recorded Body temperature Oxygen saturation Oxygen saturation in Arterial blood by Pulse oximetry Respiratory rate Heart rate Systolic And Diastolic Provider Name and Address Organization Details Last Updated DateTime 98.6 [degF] 99 % 99 % 18 /min 73 /min 116/80 mm[Hg] Not Available [facility] 13:20:01 Date Recorded Body temperature Oxygen saturation Oxygen saturation in Arterial blood by Pulse oximetry Respiratory rate Heart rate Systolic And Diastolic Provider Name and Address Organization Details Last Updated DateTime 99.2 [degF] 98 % 98 % 18 /min 78 /min 110/70 mm[Hg] Not Available [facility] 14:11:46 Social History Question Answer Notes LastModified by [employer] Travel Details LastModified Time Tobacco Smoking Status Never Smoker MCKENNA EUGENE, JOSH [address] [place], [address], [place] [facility] 06/03/2021 13:17:54 Do You Have An Advance Directive? No [email or web address] Information not available 06/03/2021 What Is Your Code Status? Full Code [email or web address] Information not available 06/03/2021 Which Illicit Or Recreational Drugs Have You Used? THC [email or web address] Information not available 06/03/2021 Fall Risk: Do You Feel Unsteady When Standing Or Walking? No [email or web address] Information not available 06/03/2021 Excessive Alcohol Or Drug Use No [email or web address] Information not available 06/03/2021 Does This Patient Have A PCP? Yes [email or web address] Information not available 06/03/2021 Sex: Unknown Functional Status Question Answer Note LastModified by [employer] Travel Details LastModified Time Do you use any illicit or recreational drugs? Yes [email or web address] Information not available 06/03/2021 What is your level of alcohol consumption? None [email or web address] Information not available 06/03/2021 Mental Status None recorded. Family History Relationship Description Onset Age of this Age Resolved Age Notes LastModified by Organization Details LastModified Time Father Malignant neoplastic disease [email or web address] Not available 13:17:07 Father Hypertensive disorder [email or web address] Not available 13:17:23 Mother Malignant neoplastic disease [email or web address] Not available 13:17:07 Mother Hypertensive disorder Not available 13:17:23 Medical History Condition Response Diabetes N Coronary Artery Disease N High Cholesterol N Pulmonary Embolism N Cancer N Hypertension N Stroke N Hypothyroidism N COPD N Asthma N Kidney Disease N Gynecological HistoryNo gynecological history recorded. Obstetrics History GPAL:G 0 P 0 0 0 0 Past Encounters Encounter ID Performer Location Encounter Start Date Encounter Closed Date Diagnosis/Indication Diagnosis SNOMED-CT Code Diagnosis ICD10 Code Diagnosis IMO Codes Diagnosis Note [id number] MCKENNA EUGENE NP [facility] [address] [place] [address] 06/03/2021 10:10:19 06/09/2021 10:22:16 Acute pharyngitis 455555853 J02.9 viral Exposure t o SARS-CoV-2 202165927 Z20.822 [id number] CASTRO REICH NP [facility] [address] [facility] [place] [address] 06/11/2021 14:06:07 06/17/2021 18:25:26 Acute otitis media 1841403 H65.03 left > right Seasonal a llergic rhinitis 153328761 J30.2 Impacted c erumen of bilateral ears 5890766884 852994 H61.23 Health Concerns Section Related Observation LastModified by Organization Detai ls LastModified Time None Recorded Concern Status LastModified by Organization Details LastModified Time None Recorded Advance Directives Directive N: Payers Insurance Date Sequence Insurance Name Policy Number Policy Drake Covered Member ID Drake Member ID Guarantor Name 12/06/2021 1 [place] [facility] Cherelle Rehman [id number] Cherelle Rehman 06/02/2021 1 *SELF PAY* Cherelle Rehman [id number] Cherelle Rehman Notes Date Note Type Note Provider Name and Address Organization Details Recorded Time 06/03/2021 text/html Cherelle Rehman is a 30 y/o F PMH ToF s/p three surgical repairs who presents with scratchy sore throat x4 days. Able to take PO. No associated symptoms. The first few days she was having difficulty with PO due to the pain, can tolerate today. Pt reports daughter who is home from school at the same symptoms. MCKENNA EUGENE NP [address] [place], [address], [place] [facility] 06/03/2021 13:51:56 06/11/2021 text/html General HPI Template - DHReported by Patient 30 yo female who is known to but new to this provider. PMHx Tetralogy of Fallot s/p three surgical repairs who presents with scratchy sore throat x8 days. Last seen by on 06/03/21 for same complaint but she states it has gotten worse, now hurts to swallow.Endorses any fever, chills, denies headache, changes in vision, runny nose, congestion, cough, chest pain, palpitations, abdominal pain, nausea, vomiting or diarrhea CASTRO REICH NP [address] [facility], [place], [address], [place] [facility] 06/11/2021 14:49:03 OBGyn Episode No OBEpisode recorded.
--- OUTSIDE RECORDS SUMMARY | 2025-06-23 15:04 | XMS_ITS | Encounter Summary ---
Author Organization [facility] Address [address] [address] Phone Care Team Providers Care Mirror Maker Name Role Phone Anita Aldrich NP Unavailable [phone] Vivienne Hastings MD Unavailable [phone] Ninfa Swenson MD Primary Care Provider + Encounter Details Date Type Department Care Team (Late st Contact Info) Description 03/09/2015 Ancillary Orders [facility] [address] [place] [address] Isabel Dorman MD [address] [place] [address] [place] [address] [email or web address] Social History Tobacco Use Types Packs/Day Years Used Date Smoking Tobacco: Never Alcohol Use Standard Drinks/Week Comments No 0 (1 standard drink = 0.6 oz pur e alcohol) Comments No Sex and Gender Information Value Date Recorded Sex Assigned at Female 08/28/2017 9:34 AM EST Legal Sex Female 4:51 PM EST Gender Identity Female Sexual Orientation Straight documented as of this encounter Plan of Treatment Not on file documented as of this encounter Visit Diagnoses Not on filedocumented in this encounter Additional Health Concerns Assessment Noted Time PHQ-9 Depression Total Score: 0 02/06/20 15 9:43 AM EDT PHQ-2 Depression Total Score: 0 02/06/20 15 9:43 AM EDT documented as of this encounter Care Teams Mirror Maker Relationship Specialty Start Date End Date Ninfa Swenson MD [address] [place] [address] PCP - General Internal Medicine 01/23/15 Anita Aldrich NP [address] [place] [address] [address] [phone] Historical LMR Provider 01/04/15 Vivienne Hastings MD [address] [place] [id number] [email or web address] Historical LMR Provider 01/04/15 08/28/21 documented as of this encounter Additional Source Comments The information contained in this document represents components of the legal health record. It is not the complete legal health record.[facility]
--- OUTSIDE RECORDS SUMMARY | 2025-06-23 15:04 | XMS_ITS | Clinical Summary ---
Author Organization [facility] spital Address [address] [place] [address] Phone Care Team Providers Care General Operations Manager Name Role Phone [facility], [facility] Unavailable Ninfa Swenson Primary Care Provider Isabel Dorman MD Unavailable [phone] Ninfa Swenson Unavailable [phone] Jose Frank MD Unavailable Isabel Dorman MD Unavailable [phone] Ninfa Swenson Unavailable [phone] Allergies Active Allergy Reactions Criticality Noted Date Comments Influenza Virus Vaccines Rash Medium 08/22/2024 Iodinated Contrast Media Rash Medium 08/22/2024 Iodine Rash,Unknown Medium 08/22/2024 Naproxen Rash Medium 03/04/2013 Reaction Type from PowerChart: Allergy; Penicillins Rash Medium 11/27/2008 Reaction Type from PowerChart: Allergy; Povidone-Iodine Rash Medium 10/30/2014 Reaction Type from PowerChart: Allergy; Sumatriptan Palpitations Low 08/22/2024 Vancomycin Rash 08/30/2016 Reaction Type from PowerChart: Allergy; Medications acetaminophen (Tylenol) 325 mg tablet Dose: 650 mg, Dose Amount: 2 tab, PO, Q4hr, PRN Fever/Pain, Entered: 09/03/16 12:30:29 EST 09/03/2016 Active aspirin 81 mg chewable tablet Dose: 81 mg, Dose Amount: 1 tab, PO, daily, Entered: 09/03/16 12:30:32 EST 09/03/2016 Active clindamycin (Cleocin) 300 mg capsule Dose: 600 mg, PO, 1time, Special Instructions: Take 1 hour before procedure, Dispense Quantity: 1 dose, Refills: 1, Entered: 03/08/17 16:29:00 EDT, [id number] 03/08/2017 Active ferrous sulfate 325 mg (65 mg iron) EC tablet Dose: 325 mg, Dose Amount: 1 tab, PO, daily, Dispense Quantity: 30 tab, Entered: 09/03/16 12:50:29 EST 09/03/2016 Active furosemide (Lasix) 20 mg tablet Dose: 20 mg, Dose Amount: 1 tab, PO, daily, Dispense Quantity: 30 tab, Entered: 09/03/16 12:30:58 EST, [facility]/pharmacy #[id number] 09/03/2016 Active Encounters Date Type Department Care Team Description 06/03/2025 1:00 PM EDT - 06/03/2025 11:59 PM EDT Hospital Encounter [address] Cardiac MRI [address] [place] [address] Ernie Dodge MD Tetralogy of Fallot Discharge Disposition: Home 06/03/2025 Travel from Last 3 Months Social History Tobacco Use Types Packs/Day Years Used Date Smoking Tobacco: Never Assessed Comments Unknown Sex and Gender Information Value Date Recorded Sex Assigned at Not on file Legal Sex Female 1:45 PM EDT Gender Identity Not on file Sexual Orientation Not on file Last Filed Vital Signs Vital Sign Reading Time Taken Comments Blood Pressure 119/85 06/03/2025 1:23 PM EDT Pulse 82 06/03/2025 1:23 PM EDT Temperature - - Respiratory Rate - - Oxygen Saturation 98% 06/03/2025 1:23 PM EDT Inhaled Oxygen Concentration - - Weight 79 kg (174 lb 2.6 oz) 06/03/2025 1:18 PM EDT Height 156 cm (5' 1.42 ) 06/03/2025 1:18 PM EDT Body Mass Index 32.46 06/03/2025 1:18 PM EDT Plan of Treatment Health Maintenance Due Date Last Done Comments Chlamydia and Gonorrhea Screening 1990 HIV Screening 1991 Anemia Screening 2003 Varicella Vaccines (1 of 2 - 13+ 2-dose series) 2004 Hepatitis C Screening 2009 Pneumococcal Vaccine: Pediatrics (0 to 5 Years) and At-Risk Patients (6 to 49 Years) (1 of 2 - PCV) 2010 Influenza Vaccine (#1) 2025 05/22/2024 DTaP/Tdap/Td Vaccines (9 - Td or Tdap) 08/20/2034 08/20/2024, 12/25/2014, 09/11/2009, Additional history exists HIB Vaccines Completed 01/06/1993, 03/21, 02/06/1992, Additional history exists IPV Vaccines Completed 09/28/1995, 03/21, 04/08/1992, Additional history exists MMR Vaccines Completed 09/30/1996, 01/06/1993 Meningococcal Vaccine Aged Out 09/16/2011, 007 No longer eligible based on patient's age to complete this topic Hepatitis B Vaccines Completed 01/06/2023, 04/18/1995, 10/27/1994, Additional history exists HPV Vaccines (No Doses Required) Completed Hepatitis A Vaccines Aged Out No long er eligible based on patient's age to complete this topic Meningococcal B Vaccine Aged Out No l onger eligible based on patient's age to complete this topic Rotavirus Vaccines Aged Out No longer eligible based on patient's age to complete this topic Procedures Procedure Name Priority Date/Time Associated Diagnosis Comments MR CARDIAC IN CARDIOLOGY Routine 06/03/2025 2:59 PM EDT Tetralogy of Fallot from Last 3 Months Results * MR Cardiac In Cardiology (06/03/2025 2:59 PM EDT) Anatomical Region Laterality Modality Heart Magnetic Resonan ce 06/03/2025 4:00 PM EDT Impressions 06/03/2025 4:40 PM EDT - Unobstructed right ventricular outflow tract to the the level of the prosthetic pulmonary valve. Unobstructed main pulmonary artery and branch pulmonary arteries. Localized artifact from the prosthetic pulmonary valve precludes direct assessment of that area. - No significant atrioventricular valve dysfunction. - Mild pulmonary regurgitation with a regurgitation fraction of 19%, similar to the prior study. - Very mild aortic valve regurgitation. - Upper limits of normal right ventricular end-diastolic volume. Normal right ventricular systolic function. - Normal left ventricular size and global systolic function. - Mild dilated aortic root. - Mildly dilated ascending thoracic aorta. - No pericardial effusion. Narrative Procedure Note Ernie Dodeg MD - 06/03/2025 IMPRESSION - Unobstructed right ventricular outflow tract to the the level of theprosthetic pulmonary valve. Unobstructed main pulmonary artery and branchpulmonary arteries. Localized artifact from the prosthetic pulmonary valveprecludes direct assessment of that area. - No significant atrioventricular valve dysfunction. - Mild pulmonary regurgitation with a regurgitation fraction of 19%,similar to the prior study. - Very mild aortic valve regurgitation. - Upper limits of normal right ventricular end-diastolic volume. Normalright ventricular systolic function. - Normal left ventricular size and global systolic function. - Mild dilated aortic root. - Mildly dilated ascending thoracic aorta. - No pericardial effusion. us Yonathan Santos MD CV MRI PROCEDURES Final Resul t from Last 3 Months Insurance ACO ACO Care Teams General Operations Manager Relationship Specialty Start Date End Date [facility] [address] [address] PCP - Insurance PCP 01/14/18 Ninfa Swenson [facility] [address] [address] PCP - General 10/05/19 Ninfa Swenson [address] [place] [address] PCP - Clinical PCP 11/13/19 Ninfa Swenson [address] [place] [address] PCP - Insurance Identified PCP 11/22/24 Isabel Dorman MD [address] [place] [address] Associate Attending Cardiology 07/18/16 Jose Frank MD [address] [place] [address] HC CV Surgeon 01/20/24 Isabel Dorman MD [address] [place] [address] HC [employer] Director 01/20/24
--- OUTSIDE RECORDS SUMMARY | 2025-06-23 15:04 | XMS_ITS | Data Portability ---
Author Organization [facility] [address] Address [address] [place] [address] Assessment No assessment recorded. Plan of Treatment Reminders Order Date Submit Date Provider Last Modified By Organization Details Last Modified Time Details Appointments None recorded. Lab None recorded. Referral None recorded. Procedures None recorded. Surgeries None recorded. Imaging None recorded. Medication Orders Aplisol 5 tub. unit/0.1 mL intradermal injection solution 2022 023 ry Not available 11:24:47 Patient TargetsNo targets recorded. Patient Instructions Encounter Date Encounter Id Patient Instructions Last Modified By Organization Details Last Modified Time 10/27/2022 [id number] This physical does not replace the annual physical to be performed by your PCP. There may be additional screening tests that they will perform that we do not in the urgent care setting. Failure to follow up as recommended may result in significant adverse health consequences. If your symptoms worsen or you develop new symptoms that concern you, go to the emergency department for further evaluation. [email or web address] Not available 10/27/2022 11:25:26 Reason for Referral None Reported. Medical Equipment None Reported. Medications Name Sig Start Date Stop Date Status Note LastModified by Organization Details LastModified Time ibuprofen 800 mg tablet TAKE ONE TABLET BY MOUTH THREE TIMES A DAY active Not Available Not Available Not Available Aplisol 5 tub. unit/0.1 mL intradermal injection solution Inject 0.1 mL as needed by intradermal route as directed for 1 day. 2022 active Not Available Not Available Not Avai lable tramadol 50 mg tablet TAKE ONE TABLET BY MOUTH EVERY 6 HOURS FOR 7 DAYS NEEDED FOR PAIN active Not Available Not Available No t Available diclofenac sodium 75 mg tablet,delay ed release TAKE ONE TABLET BY MOUTH TWICE A DAY active Not Available Not Available No t Available gabapentin 100 mg capsule TAKE 1,2 OR 3 CAPSULES BY MOUTH AT BEDTIME active Not Available Not Available No t Available oxycodone 5 mg tablet TAKE ONE TO TWO TABLETS BY MOUTH EVERY 4 TO 6 HOURS NEEDED FOR PAIN DIRECTED . DO NOT DRIVE WHILE TAKING THIS MEDICATION active Not Available Not Available N ot Available levocetirizi ne 5 mg tablet TAKE ONE TABLET BY MOUTH IN THE EVENING active Not Available Not Available Not Available Vitals None Recorded Social History None recorded. Functional Status None recorded. Mental Status None recorded. Family History Nothing Reported. Medical History No medical history recorded. Gynecological HistoryNo gynecological history recorded. Obstetrics History GPAL:G 0 P 0 0 0 0 Immunizations Vaccine Type Date Status Note Provider Nam e and Address Organization Details Recorded Time Hep B, adult 01/06/2023 completed ALDO Amato MD [address] [place] [address], [address], [place] - [facility] 01/06/2023 19:59:33 Past Encounters Encounter ID Performer Location Encounter Start Date Encounter Closed Date Diagnosis/Indication Diagnosis SNOMED-CT Code Diagnosis ICD10 Code Diagnosis IMO Codes Diagnosis Note [id number] [facility] [address] [place] [address] 04/24/2019 12:31:02 04/24/2019 13:32:29 [id number] [address] [place] [address] 09/27/2018 16:34:15 09/27/2018 17:02:54 [id number] [address] [place] [address] 05/09/2019 09:35:43 05/09/2019 10:27:55 [id number] [place] [address] [facility] [address] [place] [address] 10/27/2022 09:49:18 10/27/2022 11:30:29 Tuberculosis screening 036245279 Z11.1 History an d physical examination, pre-employment [id number] Z02.1 [id number] ALDO DIAZ MD [address] [facility] [address] [facility] LEANDRA sharif [address] 01/06/2023 14:28:55 01/06/2023 19:27:22 History and physical examination, occupation [id number] Z02.1 Health Concerns Section Related Observation LastModified by Organization Detai ls LastModified Time None Recorded Concern Status LastModified by Organization Details LastModified Time None Recorded Advance Directives Directive None Recorded Payers Insurance Date Sequence Insurance Name Policy Number Policy Drake Covered Member ID Drake Member ID Guarantor Name 10/27/2022 -[facility] Generic Employer [employer] Cherelle Rehman 10/27/2022 FEE FOR SERVICE Cherelle Rehman 01/06/2023 1 [place] [facility] Cherelle Rehman [id number] Cherelle Rehman 01/06/2023 [facility] B -[facility] B Cherelle Rehman Notes Date Note Type Note Provider Name a nd Address Organization Details Recorded Time 10/27/2022 text/html physical Reza JOSH Matson [address] [place], [address], [place] - [facility] 10/27/2022 11:33:20 OBGyn Episode No OBEpisode recorded.
--- NOTE | 2025-06-23 16:10 | HO.NURTONUR ---
Addendum entered by Leah West RN 06/23/25 19:16: Armin at bedside for eval, pt noted temp 102; pt medicated w/ apap Original Note: Pt in ED today c/o cp that started at 0700 this am while at rest. Pt states the pain continued while she was at her appt for her adderall refill and was sent here for further eval. Pt has extensive cardiac hx of tetrology of fallot repair in 1991, pulmonary valve replacement 2016, and sm pericardial effusion 03/14. Pt described the pain aching and nonradiating, and assoc w/ dyspnea. Trop was neg x 2. During work-up pt noted to have elevated temp 100.9 despite receive 1000mg iv tylenol. Pt was tx'd prophylactically w/ rocephin in ED
--- NOTE | 2025-06-23 16:18 | CA_ITS ---
Transthoracic Echocardiogram Patient (Last, First, Middle): Cherelle Rehman, Gender: Female Date of : 1990 Age: 34 Procedure Date: 06/23/2025 Procedure Type: Transthoracic Echocardiogram Location: ER Height: 157.48 cm Weight: 80. kg BSA: 1.81 m2 Heart Rate: bpm BP: 119 / 62 mmHg Screen Printing Loader Unloader: JAG Referring MD: Moy SALAS Symptoms: ?edocarditis; pt hx tetralogy of Fallot, pulm valv Study Quality: Adequate ECG Rhythm: Sinus Conclusions: - Normal left ventricular cavity size. There is mildly increased left ventricular wall thickness. The left ventricular systolic function is hyperdynamic. The visually estimated ejection fraction is >70%. - Mildly increased right ventricular cavity size. There is normal right ventricular systolic function. - The right atrium is mildly dilated. - A bioprosthetic pulmonic valve is present. The prosthetic pulmonic valve appears to be functioning abnormally. There is mild to moderate pulmonic valve regurgitation. There is moderate stenosis. - There is mild dilatation of the sinuses of Valsalva measuring 3.60 cm and mild dilatation of the ascending aorta measuring 3.20 cm. Findings Left Ventricle Normal left ventricular cavity size. There is mildly increased left ventricular wall thickness. The left ventricular systolic function is hyperdynamic. The visually estimated ejection fraction is >70%. There is no evidence of regional wall motion abnormalities. Diastolic function is normal for age. Right Ventricle Mildly increased right ventricular cavity size. There is normal right ventricular systolic function. Atria The left atrium is normal in size. The right atrium is mildly dilated. Aortic Valve The aortic valve structure and function is likely normal. There is no aortic valve stenosis. There is no aortic valve regurgitation. Mitral Valve The mitral valve appears normal. There is no mitral valve regurgitation. There is no mitral valve stenosis. Pulmonic Valve A bioprosthetic pulmonic valve is present. The prosthetic pulmonic valve appears to be functioning abnormally. There is mild to moderate pulmonic valve regurgitation. There is moderate stenosis. Tricuspid Valve Likely normal tricuspid valve structure and function. The right ventricular systolic pressure is 35 mmHg. Normal right atrial pressure. There is no evidence of pulmonary hypertension. Great Vessels There is mild dilatation of the sinuses of Valsalva measuring 3.60 cm and mild dilatation of the ascending aorta measuring 3.20 cm. The visualized portions of the pulmonary artery and branches are normal. Venous The inferior vena cava is normal in size and collapses greater than 50% with inspiration. Pericardium/Pleural Prominent epicardial adipose tissue noted. There is no evidence of pericardial effusion. Prior Study Comparison No prior study available for comparison. Measurements 2D Linear Measurements IVSd: 1.15 0.6-0.9/0.6-1.0 cm LVIDd: 3.65 3.9-5.3/4.2-5.9 cm LVIDd Index: 2.02 2.4-3.2/2.2-3.1 cm/m2 LVIDs: 2.28 2.0-3.6 cm LVPWd: 1.10 0.7-1.1 cm Ao Root: 3.60 2.1-3.5 cm LA Diam: 3.80 2.7-3.8/3.0-4.0 cm LAIDs Index: 2.10 1.5-2.3 cm/m2 LV Mass: 163.02 67-162/88-224 g LV Mass Index: 90.07 43-95/49-115 g/m2 LVOT Diam: 2.80 3.0+(-)1.3 cm Mitral Valve MV Pk E: 0.93 MV PK A: 1.27 MV Decel Time: 100.00 E/A: 0.70 E'Lateral: 13.50 E'Medial: 8.49 E/E' Med: 10.90 E/E' Lat: 6.90 PHT: 29.00 MVA PHT: 7.59 Decel [place]: 9.24 Aortic Valve AoV Pk Chang: 1.57 AoV Mn Chang: 1.11 AoV VTI: 0.25 AoV Pk Grad: 10.00 Aov Mn Grad: 6.00 KWAME Cont.VTI: 4.26 LVOT LVOT Pk Chang: 1.11 LVOT Mn Chang: 0.79 LVOT VTI: 0.17 LVOT Pk Grad: 5.00 LVOT Mn Grad: 3.00 LVOT Diam: 2.80 LVOT Area: 6.16 Diastolic Function MV Pk E: 0.93 MV Pk A: 1.27 E/A: 0.70 E'Medial: 8.49 E/E' Med: 10.90 E' Laterial: 13.50 E/E' Lat: 6.90 Right Ventricle TAPSE (mm): 20.00 TVS' Chang: 9.00 Tricuspid Valve TR Pk Chang: 2.81 TR Pk Grad: 32.00 RA Press: 3.00 RVSP: 35.00 Great Vessels Aorta Ao Root-2D: 3.60 2.0-3.7 cm Sinus of Valsalva: 3.60 2.0-3.5 cm Ao Asc: 3.20 2.1-3.4 cm Pulmonary Valve PV Pk Chang: 3.19 PV Min Chang: 2.06 Peak PV Grad: 41.00 PV Mn Grad: 21.00 Shunting QP:QS: 2.30 Updated in Other Vendor System with Status of Final David Camarillo MD electronically signed on 06/24/2025 9:12:26 AM with status of Final
--- NOTE | 2025-06-23 16:46 | P.HPHOSP_ITS ---
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 Chest pain is sharp and stabbing in nature, intermittent, and radiates to the back. Made worse with deep inspiration. Pt denies similar episodes in the past. Also complains of headache. Reports had URI-type symptoms 3 weeks ago on 06/02: cough, sore throat, alternative rhinorrhea and nasal congestion. Symptoms cleared on their own after about a week. Has been having increased PALOMARES and been worked up at [facility] in January and then a negative cardiac MRI in [place] on 06/03. No neck pain. Currently no cough. Denies N/V/D or abd pain. In the ED pt's vitals were significant for tachycardia up to the 120s, fever of 102, and tacypnea of 24. Labs were grossly unremarkable. ESR and CRP largely WNL. Serial troponins negative. D-dimer negative. Flu/RSV/COVID negative. UA negative. CXR negative for acute disease. EKG demonstrated RBBB but no significant ST elevations or depressions. Pt was treated in the ED with IV acetaminophen and ceftriaxone 2g. Pt is admitted to the hospital for treatement and further evaluation of chest pain and SIRS criteria in a high-risk pt with a complicated cardiac hx. Review of Systems 2 Review of Systems: Negative except for that which is stated in the [facility] Medical History (Updated 06/23/25 @ 23:07 by JOSUE Madison) Fallot tetralogy Pericardial effusion Surgical History Pulmonary valve replaced Social History Household Members: Significant Other and Children Housing: Apartment Do you presently have visiting nurse or other home services: No Patient Tobacco Use Status: Never used Tobacco Meds Allergies Allergy/AdvReac Type Severity Reaction Status Date / Time amoxicillin (From AUGMENTIN) Allergy Intermediate RASH Verified 06/23/25 20:18 clavulanic acid (From Allergy Intermediate RASH Verified 06/23/25 20:18 AUGMENTIN) influenza virus vaccine, Allergy Intermediate RASH Unverified 05/07/20 19:04 specific (FLU VACCINE) povidone-iodine (From Allergy Intermediate RASH Verified 06/23/25 20:18 BETADINE) soap (From BETADINE) Allergy Intermediate RASH Verified 06/23/25 20:18 iodine (IODINE) Allergy Unknown RASH Verified 06/23/25 20:18 naproxen (NAPROXEN) Allergy Unknown RASH Verified 06/23/25 20:18 Penicillins (PENICILLINS) Allergy Unknown UNK Verified 06/23/25 20:18 sumatriptan Allergy Palpitation Verified 06/23/25 20:18 s FLU VACCINE Allergy Unknown Unknown Uncoded 06/23/25 20:18 Home Medications ?Medication ?Instructions ?Recorded ?Confirmed ?Last Taken ?Type dextroamphetamine-amphetamine ER 1 cap PO DAILY 06/23/25 06/22/25 History 30 mg 24hr capsule,extend release (Adderall XR) trazodone 50 mg tablet 50 mg PO DAILY PRN Sleep 11/1206/23/25 Unknown History Physical Exam 2 Vital Signs and Narrative: Vital Signs: Last Vital Signs Temp 100.1 F 06/23/25 16:08 Pulse 114 H 06/23/25 16:08 Resp 14 06/23/25 16:08 BP 128/60 06/23/25 16:08 Pulse Ox 98 06/23/25 16:08 O2 Del Method Room Air 06/23/25 16:08 BMI result Body Mass Index 32.5 General: AOx3, no acute distress Resp: CTA bilaterally CVS: S1, S2, RRR, +murmur Chest: central anterior chest wall tender to palpation GI: +BS, NT, no distention Skin: Warm, dry Neuro: Cranial nerves II-XII grossly intact bilaterally. Motor grossly intact bilaterally Extremities: No edema Psych: Appropriate affect Results Labs 06/23/25 11:33 06/23/25 11:33 Labs: Laboratory Results - last 24 hr 06/23/25 06/23/25 06/23/25 11:33 12:36 13:57 MCV 82.2 MCH 26.1 L MCHC 31.7 RDW 13.8 Plt Count 322 MPV 10.0 Immature Gran % (Auto) 0.3 Neut % (Auto) 86.4 H Lymph % (Auto) 4.[address] [place] % (Auto) 6.3 Eos % (Auto) 1.7 Baso % (Auto) 0.6 Lymph # (Auto) 0.[address] [place] # (Auto) 0.4 Eos # (Auto) 0.1 Baso # (Auto) 0.0 Abs Immat Gran (auto) 0.02 Absolute Neuts (auto) 6.0 Absolute Nucleated RBC 0.000 Nucleated RBC % (auto) 0.0 ESR 12 D-Dimer High Sensitivty < 150 Anion Gap 14 Estim Creat Clear Calc 117.4 Estimated GFR > 60 Random Glucose 84 Lactic Acid 1.8 Calcium 9.7 Total Bilirubin 0.6 AST 35 H ALT 30 Alkaline Phosphatase 85 Troponin I High Sens < 2.7 < 2.7 C-Reactive Protein 0.54 H NT-Pro-B Natriuret Pep 87.4 Total Protein 8.9 H Albumin 5.4 H Beta HCG, Quant < 2 Urine Color Yellow Urine Appearance Clear Urine pH 7.0 Ur Specific [place] 1.020 Urine Protein Negative Urine Glucose (UA) Negative Urine Ketones Trace Urine Blood Large (3+) H Urine Nitrite Negative Ur Leukocyte Esterase Trace H Urine RBC 0-2 Urine WBC 0-5 Ur Squamous Epith Cells 3-5 Urine Bacteria Trace Hyaline Casts 0-2 COVID-19 (ADOLPH) Negative COVID-19 Clin Com See Note Influenza Type A (PAULINE) Negative Influenza Type B (PAULINE) Negative Influenza A & B Note See Note Imaging Radiologist's Impressions: Impressions Chest X-Ray 06/23/25 11:00 IMPRESSION: Cardiac valve prosthesis, probably pulmonary. Cardiomegaly. No acute disease. 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 Pt is admitted to the hospital for treatment and further evaluation of chest pain and SIRS criteria in a high- risk pt with a complicated cardiac hx. Chest pain Unclear etiology: serial trops negative, EKGs without ischemic changes Recent viral illness though EKG without signs of pericarditis, echo with no pericardial effusion D-dimer negative, pt not hypoxic; PE unlikely Cardiology consulted Echocardiogram Monitor of telemetry SIRS Met SIRS with fever of 102, tachycardia in 120s, tachypnea; lactic acid WNL Unclear source: CXR, UA, COVID/RSV/Flu negative; denies N/V/D/abd pain; no meningeal signs Will empirically treat with vanc and cefepime Check full respiratory panel Follow BCx ADHD Hold Adderall for now Full Code Attending:?Dr. Calle DVT Prophylaxis: Lovenox Pt will require a hospitalization of at least two nights for treatment of?chest pain and meeting SIRS criteria in a pt with a complicated cardiac hx. Pt will require treatment with empiric IV abx and additional close cardiac monitoring and evaluation. Quality Stroke Does the patient have a stroke diagnosis?: No VTE Prior VTE?: No VTE Risk Level:: Medical - moderate - high VTE Device Contraindication: Treatment Not Indicated VTE Drug Contraindication: N/A - Med Ordered
--- NOTE | 2025-06-23 17:12 | P.CONCA_ITS ---
History of Present Illness History of Present Illness Date of Service: 06/23/25 Requesting physician: Aniya Hoang Chief complaint: chest pain Narrative: [age] year female presenting with chest pain. 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 She follows with Dr. Yonathan Santos. She apparently had a MRI done in [place] recently and was due to get an echocardiogram. She said she woke up with sharp chest pains. She is describing them in the center of chest and this is clearly pleuritic in nature. She has no shortness of breath and has a complaints. She is saying that the pain is worse with breathing but she has not notice any postural changes. She recently had viral illness 2 weeks ago. She also is reporting that she had a small pericardial effusion in January 2025. EKGs showing sinus technique cardia, normal axis, next block with QRS duration of 154 milliseconds, QTC 518 milliseconds. PMFSH Social History Social History Smoked in Last 30 Days: No Use of substances other than those prescribed or required for medical reasons: No Advance Directives: No Advance Directives Information Provided: No Patient : No Meds Allergies Allergy/AdvReac Type Severity Reaction Status Date / Time amoxicillin (From AUGMENTIN) Allergy Intermediate RASH Unverified 05/07/20 19:04 clavulanic acid (From Allergy Intermediate RASH Unverified 05/07/20 19:04 AUGMENTIN) influenza virus vaccine, Allergy Intermediate RASH Unverified 05/07/20 19:04 specific (FLU VACCINE) povidone-iodine (From Allergy Intermediate RASH Unverified 05/07/20 19:04 BETADINE) soap (From BETADINE) Allergy Intermediate RASH Unverified 05/07/20 19:04 iodine (IODINE) Allergy Unknown RASH Unverified 05/07/20 19:04 naproxen (NAPROXEN) Allergy Unknown RASH Unverified 05/07/20 19:04 Penicillins (PENICILLINS) Allergy Unknown UNK Unverified 05/07/20 19:04 sumatriptan Allergy Palpitation Verified 06/23/25 10:49 s FLU VACCINE Allergy Unknown Unknown Uncoded 06/23/25 10:49 Home Medications ?Medication ?Instructions ?Recorded ?Confirmed ?Last Taken ?Type dextroamphetamine-amphetamine ER 1 cap PO DAILY 06/23/25 06/22/25 History 30 mg 24hr capsule,extend release (Adderall XR) trazodone 50 mg tablet 50 mg PO DAILY PRN Sleep 11/1206/23/25 Unknown History Physical Exam 2 Vital Signs: Vital Signs: Last Vital Signs Temp 100.1 F 06/23/25 16:08 Pulse 114 H 06/23/25 16:08 Resp 14 06/23/25 16:08 BP 128/60 06/23/25 16:08 Pulse Ox 98 06/23/25 16:08 O2 Del Method Room Air 06/23/25 16:08 BMI result Body Mass Index 32.5 GENERAL APPEARANCE: in no acute distress, anxious appearing.. NECK: no carotid bruit, no jugular venous distention. SKIN: no suspicious lesions, warm and dry. HEART: Systolic murmur aortic area and pulmonic area, systolic murmur at the apex, regular rate and rhythm. Tachycardic. LUNGS: clear to auscultation bilaterally. ABDOMEN: soft, nontender. EXTREMITIES: no edema. PERIPHERAL PULSES: equal. NEUROLOGIC: No gross deficits, AAO X 3 Objective Labs and Meds 06/23/25 11:33 06/23/25 11:33 Lab results: Laboratory Results - last 24 hr 06/23/25 06/23/25 06/23/25 11:33 12:36 13:57 WBC 7.0 RBC 5.18 Hgb 13.5 Hct 42.6 MCV 82.2 MCH 26.1 L MCHC 31.7 RDW 13.8 Plt Count 322 MPV 10.0 Immature Gran % (Auto) 0.3 Neut % (Auto) 86.4 H Lymph % (Auto) 4.7 L [place] % (Auto) 6.3 Eos % (Auto) 1.7 Baso % (Auto) 0.6 Lymph # (Auto) 0.3 L [place] # (Auto) 0.4 Eos # (Auto) 0.1 Baso # (Auto) 0.0 Abs Immat Gran (auto) 0.02 Absolute Neuts (auto) 6.0 Absolute Nucleated RBC 0.000 Nucleated RBC % (auto) 0.0 ESR 12 D-Dimer High Sensitivty < 150 Sodium 137 Potassium 4.0 Chloride 102 Carbon Dioxide 25 Anion Gap 14 BUN 11 Creatinine 0.67 Estim Creat Clear Calc 117.4 Estimated GFR > 60 Random Glucose 84 Lactic Acid 1.8 Calcium 9.7 Total Bilirubin 0.6 AST 35 H ALT 30 Alkaline Phosphatase 85 Troponin I High Sens < 2.7 < 2.7 C-Reactive Protein 0.54 H NT-Pro-B Natriuret Pep 87.4 Total Protein 8.9 H Albumin 5.4 H Beta HCG, Quant < 2 Urine Color Yellow Urine Appearance Clear Urine pH 7.0 Ur Specific [place] 1.020 Urine Protein Negative Urine Glucose (UA) Negative Urine Ketones Trace Urine Blood Large (3+) H Urine Nitrite Negative Ur Leukocyte Esterase Trace H Urine RBC 0-2 Urine WBC 0-5 Ur Squamous Epith Cells 3-5 Urine Bacteria Trace Hyaline Casts 0-2 COVID-19 (ADOLPH) Negative COVID-19 Clin Com See Note Influenza Type A (PAULINE) Negative Influenza Type B (PAULINE) Negative Influenza A & B Note See Note Imaging Radiologist's impression: Impressions Chest X-Ray 06/23/25 11:00 IMPRESSION: Cardiac valve prosthesis, probably pulmonary. Cardiomegaly. No acute disease. Electronically signed by: Ariel Bowers MD 06/23/2025 11:13 AM [facility] [place] [place] Assessment and Plan (1) Chest pain: Status: Acute Plan Pleasant 34 year female presenting for chest pain. She has pleuritic chest pain and recent viral illness. One question can be pericarditis although her EKGs not showing any significant changes for that. Echocardiography is not showing any pericardial effusion. We will review it in more detail to assess the pulmonic valve. She has received antibiotics after gatica culture including blood cultures. Treat symptomatically. D-dimer is negative. We will follow along with you. Thank you for allowing me to participate in the care of your patient. Please feel free to contact me if you have any questions. Procedures Date of Service Date of Service: 06/23/25
--- NOTE | 2025-06-23 19:37 | PC.NURSE ---
Pt eating dinner, after a few bites pt began c/o nauea, vomit small amnt, pt medicated w/ prn antiemetic
[2025-06-23] MEDS: cefEPime HCl/D5W 2 GM/50 ML PIGGYBACK IV (19:50)
[2025-06-23] MEDS: vancomycin/NS 2,000 MG/500 ML PLAST..BAG 250 MG IV (20:20)
--- NOTE | 2025-06-23 20:27 | PHA.PROG ---
Admission Date/Time: June 23, 2025 14:49 Indication: Sepsis Weight in k.6 kg Adjusted body weight in Kg: [place] body weight in Kg: Obesity Dosing Indication % IBW: Serum Creatinine - Last 168 Hours 06/23/25 11:33 Creatinine 0.67 Estimated CrCl and GFR - Last 168 Hours 06/23/25 11:33 Estim Creat Clear Calc 117.4 Estimated GFR > 60 Vancomycin Loading Dose: 2000mg x 1 Current Vancomycin Dosing Regimen: 1500mg Q12H Vancomycin Monitoring using AUC goal of 400 - 600 range with trough as surrogate marker: 555 mg/L Date and Time for next Vancomycin Level to be drawn: 06/25 @0600 Pharmacist Comments on Vancomycin Plan: Predicted trough of 16mg/L; will continue to monitor and adjust appropriately Vancomycin dosing will take advantage of [employer] as a clinical decision support tool that uses Bayesian modeling to calculate individual patient's pharmacokinetic parameters and forecast the patient's drug concentration time course with the target goal AUC 24 range of 400 - 600 mg/L/hr.
[2025-06-23] MEDS: oxyCODONE HCl Immed Release 5 MG TABLET PO (21:40)
[2025-06-24 03:06] VITALS: BP 113/55; PULSE 86; RESP 16; TEMP 37.4; O2SAT 96
[2025-06-24] MEDS: oxyCODONE HCl Immed Release 5 MG TABLET PO ×2 (03:11→08:50)
[2025-06-24] MEDS: cefEPime HCl/D5W 2 GM/50 ML PIGGYBACK IV (03:12)
[2025-06-24 07:29] LABS: Creatinine Clr Calc Pharmacy 117.3; Estimated Glomerular Filt Rate > 60
[2025-06-24 07:35] VITALS: BP 108/71; PULSE 80; RESP 18; TEMP 37; O2SAT 98
--- NOTE | 2025-06-24 08:50 | MHC.CM.PN ---
CM met with Patient at bedside and addressed RICHTER with her, providing Patient with the original and a copy has been placed on the chart. Patient lives in an apartment with her Boyfriend and her 10 year old Child and she is functionally independent. Home/self care is Patient's goal and CM has initiated and will follow for dc planning. PCP is Dr. Leisa Rosenberg and Father/Kip is the HCP.Patient's car is here for transport to home at dc.
[2025-06-24 09:38] LABS: Chlamydia pneumoniae PCR Not Detected (Not Detect.); Coronavirus 229E PCR Not Detected (Not Detect.); Coronavirus HKU1 PCR Not Detected (Not Detect.); Coronavirus NL63 PCR Not Detected (Not Detect.); Coronavirus OC43 PCR Not Detected (Not Detect.); RSV PCR Not Detected (Not Detect.); Rhino/Enterovirus PCR Not Detected (Not Detect.)
--- NOTE | 2025-06-24 10:43 | PM.PNCARD ---
Subjective Subjective Date of Service: 06/24/25 Interval history: Seen examined at bedside. She still has chest pain but this is reproducible on the chest wall. Echocardiography reviewed. Physical Exam Vital Signs: Last Vital Signs Temp 98.6 F 06/24/25 07:35 Pulse 80 06/24/25 07:35 Resp 18 06/24/25 07:35 BP 108/71 06/24/25 07:35 Pulse Ox 98 06/24/25 07:35 O2 Del Method Room Air 06/24/25 07:35 BMI result Body Mass Index 32.5 GENERAL APPEARANCE: in no acute distress. NECK: no carotid bruit, no jugular venous distention. SKIN: no suspicious lesions, warm and dry. HEART: Systolic murmur aortic area and pulmonic area, systolic murmur at the apex, regular rate and rhythm. Tachycardic. LUNGS: clear to auscultation bilaterally. ABDOMEN: soft, nontender. EXTREMITIES: no edema. PERIPHERAL PULSES: equal. NEUROLOGIC: No gross deficits, AAO X 3 Objective Labs and Meds 06/23/25 11:33 06/24/25 06:16 Lab results: Laboratory Results - last 24 hr 06/23/25 06/23/25 06/23/25 11:33 12:36 13:57 WBC 7.0 RBC 5.18 Hgb 13.5 Hct 42.6 MCV 82.2 MCH 26.1 L MCHC 31.7 RDW 13.8 Plt Count 322 MPV 10.0 Immature Gran % (Auto) 0.3 Neut % (Auto) 86.4 H Lymph % (Auto) 4.7 L [place] % (Auto) 6.3 Eos % (Auto) 1.7 Baso % (Auto) 0.6 Lymph # (Auto) 0.3 L [place] # (Auto) 0.4 Eos # (Auto) 0.1 Baso # (Auto) 0.0 Abs Immat Gran (auto) 0.02 Absolute Neuts (auto) 6.0 Absolute Nucleated RBC 0.000 Nucleated RBC % (auto) 0.0 ESR 12 D-Dimer High Sensitivty < 150 Sodium 137 Potassium 4.0 Chloride 102 Carbon Dioxide 25 Anion Gap 14 BUN 11 Creatinine 0.67 Estim Creat Clear Calc 117.4 Estimated GFR > 60 Random Glucose 84 Lactic Acid 1.8 Calcium 9.7 Total Bilirubin 0.6 AST 35 H ALT 30 Alkaline Phosphatase 85 Troponin I High Sens < 2.7 < 2.7 C-Reactive Protein 0.54 H NT-Pro-B Natriuret Pep 87.4 Total Protein 8.9 H Albumin 5.4 H Beta HCG, Quant < 2 Urine Color Yellow Urine Appearance Clear Urine pH 7.0 Ur Specific [place] 1.020 Urine Protein Negative Urine Glucose (UA) Negative Urine Ketones Trace Urine Blood Large (3+) H Urine Nitrite Negative Ur Leukocyte Esterase Trace H Urine RBC 0-2 Urine WBC 0-5 Ur Squamous Epith Cells 3-5 Urine Bacteria Trace Hyaline Casts 0-2 COVID-19 (ADOLPH) Negative COVID-19 Clin Com See Note Influenza Type A (PAULINE) Negative Influenza Type B (PAULINE) Negative Influenza A & B Note See Note 06/24/25 06:16 WBC RBC Hgb Hct MCV MCH MCHC RDW Plt Count MPV Immature Gran % (Auto) Neut % (Auto) Lymph % (Auto) [place] % (Auto) Eos % (Auto) Baso % (Auto) Lymph # (Auto) [place] # (Auto) Eos # (Auto) Baso # (Auto) Abs Immat Gran (auto) Absolute Neuts (auto) Absolute Nucleated RBC Nucleated RBC % (auto) ESR D-Dimer High Sensitivty Sodium Potassium Chloride Carbon Dioxide Anion Gap BUN Creatinine 0.67 Estim Creat Clear Calc 117.3 Estimated GFR > 60 Random Glucose Lactic Acid Calcium Total Bilirubin AST ALT Alkaline Phosphatase Troponin I High Sens C-Reactive Protein NT-Pro-B Natriuret Pep Total Protein Albumin Beta HCG, Quant Urine Color Urine Appearance Urine pH Ur Specific [place] Urine Protein Urine Glucose (UA) Urine Ketones Urine Blood Urine Nitrite Ur Leukocyte Esterase Urine RBC Urine WBC Ur Squamous Epith Cells Urine Bacteria Hyaline Casts COVID-19 (ADOLPH) COVID-19 Clin Com Influenza Type A (PAULINE) Influenza Type B (PAULINE) Influenza A & B Note Imaging Radiologist's impression: Impressions Chest X-Ray 06/23/25 11:00 IMPRESSION: Cardiac valve prosthesis, probably pulmonary. Cardiomegaly. No acute disease. 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 She is here with chest pain which is musculoskeletal in origin. This should be treated symptomatically. Echocardiography has shown mild RV dilation and moderate prosthetic pulmonic valve stenosis with [id number] regurgitation. She has low-grade fevers and had blood cultures done. If blood cultures are negative she can be discharged back home and can follow up with Dr. Yonathan Santos who is her congenital heart disease specialist. She knows that she needs antibiotics every time she gets dental cleaning/procedures. Thank you for allowing me to participate in the care of your patient. Please feel free to contact me if you have any questions. Time Spent With Patient Time: Total time managing care of this patient today ____ minutes. Progress Note: Quality Stroke Does the patient have a stroke diagnosis?: No Procedures Date of Service Date of Service: 06/24/25
[2025-06-24 11:08] LABS: Influenza A H1 PCR Not Detected (Not Detect.); Influenza A H1-2009 PCR Not Detected (Not Detect.); Influenza A H3 PCR Not Detected (Not Detect.); SARS-CoV-2 PCR Detected (Not Detect.)
[2025-06-24 12:00] VITALS: BP 133/74; PULSE 91; RESP 20; TEMP 38; O2SAT 97
[2025-06-24 14:11] VITALS: TEMP 36.7
[2025-06-24 15:43] VITALS: BP 110/58; PULSE 80; RESP 20; TEMP 36.5; O2SAT 98
--- NOTE | 2025-06-24 16:06 | P.DS_ITS ---
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 Chest pain is sharp and stabbing in nature, intermittent, and radiates to the back. Made worse with deep inspiration. Pt denies similar episodes in the past. Also complains of headache. Reports had URI-type symptoms 3 weeks ago on 06/02: cough, sore throat, alternative rhinorrhea and nasal congestion. Symptoms cleared on their own after about a week. Has been having increased PALOMARES and been worked up at [facility] in January and then a negative cardiac MRI in [place] on 06/03. No neck pain. Currently no cough. Denies N/V/D or abd pain. In the ED pt's vitals were significant for tachycardia up to the 120s, fever of 102, and tacypnea of 24. Labs were grossly unremarkable. ESR and CRP largely WNL. Serial troponins negative. D-dimer negative. Flu/RSV/COVID negative. UA negative. CXR negative for acute disease. EKG demonstrated RBBB but no significant ST elevations or depressions. Pt was treated in the ED with IV acetaminophen and ceftriaxone 2g. Pt is admitted to the hospital for treatement and further evaluation of chest pain and SIRS criteria in a high-risk pt with a complicated cardiac hx. Hospital course Pt initially presented to the hospital for evaluation of sudden onset chest pain since earlier in the morning on the day of presentation. Pt has a complicated cardiac hx including tetralogy of Fallot s/p repair and pulmonary valve replacement and was thus at high-risk for cardiac complications. Initial cardiac workup was negative, including serial troponins and EKG x2. Pt was seen and evaluated by Cardiology and underwent an echocardiogram that was negative for pericardial effusion or signs of endocarditis. Echocardiogram did show [id number] pulmonic valve regurgitation and moderate stenosis. Cardiology felt chest pain likely musculoskeletal rather than cardiogenic. During hospital stay pt spiked fevers as high as 102 and underwent additional evaluation for infectious workup as she met SIRS criteria with fever, tachycardia, and tachypnea. No leukocytosis or acute lactic acidosis. The pt was started on empiric IV antibiotics -- vancomycin and cefepime -- and kept overnight with respiratory panel in the morning came back positive for COVID. Patient's chest pain was reproducible with palpation, and likely secondary to costochondritis in the setting of COVID infection. Pt was not hypoxic during hospital stay and does not requiring steroids or supplemental oxygen. Blood cultures negative after 24 hours and patient's chest pain was largely resolved at time of discharge. Pt will be discharged home where she should continue isolation until she is afebrile for 24 hours without the use of antipyretics, and then continue contact precautions for an additional 4 days. Pt has been sent home with a printout of her echocardiogram and she should follow up outpatient with her primary dialysis social worker in [place]. She should continue all other home medications. Time Attestation Discharge Coordination Time (in mins): 35 Quality: Safe Use of Opioids Does Pt have an Active Cancer Diagnosis on the Problem List?: No Quality: Stroke Does the patient have a stroke diagnosis?: No Physical Exam Exam: Exam: General: AOx3, no acute distress Resp: CTA bilaterally CVS: S1, S2, RRR, +murmur Chest: central anterior chest wall mildly tender to palpation GI: +BS, NT, no distention Skin: Warm, dry Neuro: Cranial nerves II-XII grossly intact bilaterally. Motor grossly intact bilaterally Extremities: No edema Psych: Appropriate affect Vital Signs: Vital Signs: Last Vital Signs Temp 97.7 F 06/24/25 15:43 Pulse 80 06/24/25 15:43 Resp 20 06/24/25 15:43 BP 110/58 L 06/24/25 15:43 Pulse Ox 98 06/24/25 15:43 O2 Del Method Room Air 06/24/25 15:43 BMI result Body Mass Index 32.5 DS: Data Data Completed and Pending Labs on day of discharge: Laboratory Results - last 24 hr 06/23/25 06/24/25 20:16 06:16 Creatinine 0.67 Estim Creat Clear Calc 117.3 Estimated GFR > 60 Respiratory Panel Garcia See Note Adenovirus (Rapid PCR) Not Detected B.pert (TEM-PCR) Not Detected B.parapertussis DNA PCR Not Detected C. pneumoniae DNA (PCR) Not Detected Coronavirus OC43 (PCR) Not Detected Coronavirus HKU1 (PCR) Not Detected Coronavirus 229E (PCR) Not Detected Coronavirus NL63 (PCR) Not Detected Human Metapneumovir PCR Not Detected Influenza A (RT-PCR) Not Detected Influenza A (H1) PCR Not Detected Influ A (H1/09) PCR Not Detected Influenza A (H3) PCR Not Detected Influenza B (RT-PCR) Not Detected M. pneumoniae (PCR) Not Detected Parainfluenza 1 (PCR) Not Detected Parainfluenza 2 (PCR) Not Detected Parainfluenza 3 (PCR) Not Detected Parainfluenza 4 (PCR) Not Detected RSV (PCR) Not Detected Entero/Rhino (PCR) Not Detected SARS-CoV-2 RNA (RT-PCR) Detected A Preliminary micro results at discharge 06/23/25 13:57 Blood Culture - Preliminary Blood - Venous No growth after 24 hours. Discharge Plan Discharge Anticipated Discharge Date/Time: 06/24/25 15:41 Patient Disposition: Home, Self-Care Discharge Diagnosis: Acute COVID Referrals: Leisa Rosenberg DO [Primary Care Provider, Internal Medicine] - 1 Week Discharge Medications: Continued trazodone 50 mg tablet 50 mg PO DAILY PRN (Reason: Sleep) dextroamphetamine-amphetamine [Adderall XR] 30 mg capsule,extended release 24hr 1 cap PO DAILY Discharge Orders: Discharge Order (Routine); Ordered 06/24/25 Ordered By: Moy Finn Activity on Discharge: As tolerated Stand Alone Forms: Patient Portal Discharge page Print Language: Uruguayan Care Plan Goals: See below Health Concerns: COVID Chest pain Pulmonary valve stenosis Pulmonary valve regurgitation Plan of Treatment: You presented to the hospital for evaluation of sudden onset chest pain since earlier in the morning on the day of presentation. You were seen and evaluated by Cardiology where your cardiac workup was negative for a source of your symptoms: Serial troponins were negative, EKG x2 was without ischemic changes, echo without pericardial effusion or signs of endocarditis. While in the hospital you developed fevers and tachycardia, and were initially treated with empiric IV antibiotics until additional workup was positive for COVID infection. Chest pain likely secondary to costochondritis from COVID infection. You have not been hypoxic while in the hospital, and overall appear improved from presentation with chest pain better controlled. Blood cultures has been negative after 24 hours and there was no indication to continue antibiotic treatment at this time. You will be discharged home to continue supportive care. -- you have tested positive for COVID and has been experiencing reproducible central anterior chest wall tenderness as well as intermittent fevers, but otherwise largely asymptomatic -- use supportive care at home, including [id number] analgesics and antipyretics such as Tylenol or Motrin -- COVID precautions are now primarily symptom based. You should remain in isolation until you has been afebrile for 24 hours without use of antipyretics. You should limit contact for an additional 4 days and wear tight-fitting mask if you are in public -- you echocardiogram was negative for pericardial effusion or endocarditis, but did show [id number] pulmonic valve regurgitation and moderate stenosis. You has been provided a printout report of the echocardiogram findings, and should follow up with your dialysis social worker in [place] Assessment: See discharge summary
--- NOTE | 2025-06-24 16:11 | MHC.CM.PN ---
Patient has been medically cleared for dc to home today, self care.
== END 2025-06-24 16:57 | disposition home or self-care (01) | DRG 137 ==
LOC: HO.ED 14:24 → HO.EDOVER 14:52 → HO.IMC 19:21 → HO.EDOVER 19:31 → HO.IMC 20:41
PROVIDERS: Physician Assistant Medical; Registered Nurse Emergency; Admitting Provider Student in an Organized Health Care Education/Training Program; Emergency Provider Emergency Medicine; PCP Pediatrics; Visit Provider Student in an Organized Health Care Education/Training Program
DX: U07.1 COVID-19 (principal); F90.9 Attention-deficit hyperactivity disorder, unspecified type; Z95.3 Presence of xenogenic heart valve; Z87.74 Personal history of (corrected) congenital malformations of heart and circulatory system; Z79.899 Other long term (current) drug therapy
CPT/HCPCS: 36415; 71046; 80053; 81001; 82565; 83605; 83880; 84484; 84702; 85025; 85379; 85652; 86140; 87040; 87502; 87633; 87635; 93005; 93306; 99285; J0131; J0692; J0696; J1650; J2270; J2405; J3373; J3374

== ENCOUNTER → 2025-06-23 10:50 | Outpatient (BNV) | payer OTHER, SELFPAY | PROVIDERS: PCP Pediatrics; Visit Provider Radiology Diagnostic Radiology | DX: I51.7 Cardiomegaly (principal); Z95.2 Presence of prosthetic heart valve | CPT/HCPCS: 71046 ==

== ENCOUNTER → 2025-06-23 14:49 | Outpatient (BNV) | payer OTHER, SELFPAY | PROVIDERS: Admitting Provider Student in an Organized Health Care Education/Training Program; Emergency Provider Emergency Medicine; PCP Pediatrics; Visit Provider Internal Medicine Cardiovascular Disease | DX: R07.9 Chest pain, unspecified (principal) | CPT/HCPCS: 99223 ==

== ENCOUNTER → 2025-06-23 14:49 | Outpatient (BNV) | payer OTHER, SELFPAY | PROVIDERS: Admitting Provider Student in an Organized Health Care Education/Training Program; Emergency Provider Emergency Medicine; PCP Pediatrics; Visit Provider Student in an Organized Health Care Education/Training Program | DX: R07.9 Chest pain, unspecified (principal); R65.10 Systemic inflammatory response syndrome (SIRS) of non-infectious origin without acute organ dysfunction | CPT/HCPCS: 99223 ==